=== PATIENT | female | born 1970 | race African-American/Black ===

== ENCOUNTER 2024-07-12 15:51 | Inpatient (IN) | payer OTHER, SELFPAY ==
[2024-07-12 16:00] VITALS: BP 119/74; PULSE 77; RESP 16; TEMP 36.6; O2SAT 99
--- OUTSIDE RECORDS SUMMARY | 2024-07-12 16:12 | XMS_ITS | Encounter Summary ---
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 of care for safety, stabilization and medication evaluation. She is on a section 12 involuntary. Recommendations were discussed with requesting provider. It was a pleasure to assist Dipika Ahumada here at [facility]. This report is written and finalized by: Sue Byrd, Behavioral Health Specialist [facility] (Tel): [phone] / : [phone] * Gray Clarke - 07/11/2024 6:41 PM EDT The patient is assessed in the community by [facility] and found to be appropriate for inpatient, Bed-Search. Assessment will follow upon completion. The patient was described giving up on life and want to ; she does not car for herself. Experiencing auditory and visual hallucination, sometimes telling her to kill herself. She has a history of self-harm by cutting and burning and was previously diagnosed with schizoaffective disorder depressive type. She has been using crack/cocaine for couple of times a week and not med compliant, in factsshe through away all her medication. documented in this encounter Plan of Treatment Pending Results Name Type Priority Associated Diagnoses Date /Time ECG 12 lead ECG STAT 07/11/2024 7: 10 PM EDT Urinalysis with reflex microscopic and culture Lab STAT 07/12/19 6:54 PM EDT [facility] urine culture tube Lab STAT 0 07/11/2024 6:54 PM EDT Scheduled Orders Name Type Priority Associated Diagnoses Orde r Schedule Urinalysis with reflex microscopic and culture Lab STAT Once for 1 Occurrences starting 07/11/2024 until 07/11/2024 [facility] urine culture tube Lab Routine O nce for 1 Occurrences starting 07/11/2024 until 07/11/2024, 1 completed documented as of this encounter Procedures Procedure Name Priority Date/Time Associated Diagnosis Comments CBC WITH AUTO DIFFERENTIAL STAT 07/11/2024 8:26 PM EDT CBC AND DIFFERENTIAL STAT 07/11/2024 8:26 PM EDT ETHANOL STAT 07/11/2024 8:26 PM EDT ACETAMINOPHEN LEVEL STAT 07/11/2024 8 :26 PM EDT SALICYLATE LEVEL STAT 07/11/2024 8:26 PM EDT COMPREHENSIVE METABOLIC PANEL STAT 07/11/2024 8:26 PM EDT ECG 12-LEAD STAT 07/11/2024 7:10 PM EDT URINALYSIS WITH REFLEX MICROSCOPIC AND CULTURE STAT 07/11/2024 6:54 PM EDT DRUG ABUSE SCREEN 8A PANEL, URINE STAT 07/11/2024 6:54 PM EDT BUPRENORPHINE SCREEN, URINE STAT 07/11/2024 6:54 PM EDT METHADONE SCREEN, URINE STAT 07/11/2024 6:54 PM EDT PHENCYCLIDINE, URINE STAT 07/11/2024 6:54 PM EDT documented in this encounter Results * CBC auto differential (07/11/2024 8:26 PM EDT) [facility] Signature WBC 7.9 4.8 - 10.8 K/mcL LAB [facility] RBC 4.40 3.80 - 4.80 M/mcL LAB HEMETOLOGY METHOD 07/11/2024 9:00 PM [facility] Hemoglobin 13.1 11.5 - 16.0 g/dL LAB HEMETOLOGY METHOD 07/11/2024 9:00 PM [facility] Hematocrit 40.8 35.0 - 47.0 % LAB HEMETOLOGY METHOD 07/11/2024 9:00 PM [facility] MCV 93.2 79.0 - 98.0 FL LAB HEMETOLOGY METHOD 07/11/2024 9:00 PM [facility] MCH 29.9 27.0 - 32.0 pcg LAB HEMETOLOGY METHOD 07/11/2024 9:00 PM [facility] MCHC 32.1 32.0 - 37.0 g/dL LAB HEMETOLOGY METHOD 07/11/2024 9:00 PM [facility] RDW 13.9 11.0 - 15.0 % LAB HEMETOLOGY METHOD 07/11/2024 9:00 PM [facility] Platelets 227 130 - 400 K/mcL LAB HEMETOLOGY METHOD 07/11/2024 9:00 PM [facility] MPV 10.6 7.0 - 11.0 FL LAB HEMETOLOGY METHOD 07/11/2024 9:00 PM [facility] NRBC 0.0 <1.0 % LAB HEMETOLOGY METHOD 07/11/2024 9:00 PM [facility] NRBC Absolute 0.00 <0.10 K/mcL LAB HEMETOLOGY METHOD 07/11/2024 9:00 PM [facility] Neutrophils Relative 58.0 % LAB HEMETOLOGY METHOD 07/11/2024 9:00 PM [facility] Lymphocytes Relative 33.9 % LAB HEMETOLOGY METHOD 07/11/2024 9:00 PM [facility] Monocytes Relative 6.3 % LAB HEMETOLOGY METHOD 07/11/2024 9:00 PM [facility] Eosinophils Relative 0.9 % LAB HEMETOLOGY METHOD 07/11/2024 9:00 PM [facility] Basophils Relative 0.5 % LAB HEMETOLOGY METHOD 07/11/2024 9:00 PM [facility] Immature Granulocytes Relative 0.4 % LAB HEMETOLOGY METHOD 07/11/2024 9:00 PM [facility] Neutrophils Absolute 4.59 1.50 - 7.00 K/mcL LAB HEMETOLOGY METHOD 07/11/2024 9:00 PM [facility] Lymphocytes Absolute 2.68 1.00 - 5.00 K/mcL LAB HEMETOLOGY METHOD 07/11/2024 9:00 PM [facility] Monocytes Absolute 0.50 0.20 - 1.00 K/mcL LAB HEMETOLOGY METHOD 07/11/2024 9:00 PM [facility] Eosinophils Absolute 0.07 0.00 - 0.50 K/mcL LAB HEMETOLOGY METHOD 07/11/2024 9:00 PM [facility] Basophils Absolute 0.04 0.00 - 0.20 K/mcL LAB HEMETOLOGY METHOD 07/11/2024 9:00 PM EDT [facility] Immature Granulocytes Absolute 0.03 0.00 - 0.03 K/mcL LAB HEMETOLOGY METHOD 07/11/2024 9:00 PM EDT [facility] Blood Venous blood specimen / Unknown Venipuncture / Unknown 07/11/2024 8:26 PM EDT 07/11/2024 8:49 PM EDT us Jarvis Gambino MD LAB BLOOD ORDERABLES Final Res ult Performing Organization Address [facility] Co de Phone Number [facility] [address] [place] [address], [place] [phone] * (ABNORMAL) Salicylate level (07/11/2024 8:26 PM EDT) Salicylate Level <1.7(L) 2.0 - 29.0 mg/dL LAB CHEMISTRY METHOD 07/11/2024 9:18 PM EDT [facility] Blood Venous blood specimen / Unknown Venipuncture / Unknown 07/11/2024 8:26 PM EDT 07/11/2024 8:49 PM EDT us Jarvis Gambino MD LAB BLOOD ORDERABLES Final Res ult Performing Organization Address [facility]/ZIP Co de Phone Number [facility] [address] [place] [address], [place] [phone] * (ABNORMAL) Acetaminophen level (07/11/2024 8:26 PM EDT) Acetaminophen Level <2.0(L) 10.0 - 30.0 mcg/mL LAB CHEMISTRY METHOD 07/11/2024 9:18 PM EDT [facility] Blood Venous blood specimen / Unknown Venipuncture / Unknown 07/11/2024 8:26 PM EDT 07/11/2024 8:49 PM EDT us Jarvis Gambino MD LAB BLOOD ORDERABLES Final Res ult Performing Organization Address City/[facility]/ZIP Co de Phone Number [facility] [address] [place] [address], [place] [phone] * Ethanol (07/11/2024 8:26 PM EDT) Ethanol Level 9 0 - 10 mg/dL LAB CHEMISTRY METHOD 07/11/2024 9:18 PM EDT [facility] Blood Venous blood specimen / Unknown Venipuncture / Unknown 07/11/2024 8:26 PM EDT 07/11/2024 8:49 PM EDT us Jarvis Gambino MD LAB BLOOD ORDERABLES Final Res ult Performing Organization Address [facility]/ZIP Co de Phone Number [facility] [address] [place] [address], [place] [phone] * (ABNORMAL) Comprehensive metabolic panel (07/11/2024 8:26 PM EDT) Sodium 143 133 - 145 mmol/L LAB CHEMISTRY METHOD 07/11/2024 9:18 PM [facility] Potassium 4.2 3.5 - 5.5 mmol/L LAB CHEMISTRY METHOD 07/11/2024 9:18 PM [facility] Chloride 112(H) 96 - 110 mmol/L LAB CHEMISTRY METHOD 07/11/2024 9:18 PM EDT [facility] CO2 26 21 - 32 mmol/L LAB CHEMISTRY METHOD 07/11/2024 9:18 PM EDT [facility] Anion Gap 5 3 - 11 LAB CHEMISTRY METHOD 07/11/2024 9:18 PM EDT [facility] Glucose 76 70 - 100 mg/dL LAB CHEMISTRY METHOD 07/11[facility]2024 [facility] BUN 14 5 - 25 mg/dL LAB CHEMISTRY METHOD 07/11/2024 9:18 PM [facility] Creatinine 1.09 0.50 - 1.10 mg/dL LAB CHEMISTRY METHOD 07/11/2024 9:18 PM [facility] eGFR 60 >=60 mL/min/1. 73m2 LAB CHEMISTRY METHOD 07/11/2024 9:18 PM [facility] Comment:Calculation based on the Chronic Kidney Disease Epidemiology Collaboration (CKD-EPI) equation refit without adjustment for race. BUN/Creatinine Ratio 12.8 LAB CHEMISTRY METHOD 07/11/2024 9:18 PM [facility] Calcium 8.6 8.5 - 10.5 mg/dL LAB CHEMISTRY METHOD 07/11/2024 9:18 PM [facility] AST (SGOT) 24 10 - 42 unit/L LAB CHEMISTRY METHOD 07/11/2024 9:18 PM [facility] ALT (SGPT) 22 10 - 60 unit/L LAB CHEMISTRY METHOD 07/11/2024 9:18 PM [facility] Alkaline Phosphatase 100 42 - 121 unit/L LAB CHEMISTRY METHOD 07/11/2024 9:18 PM [facility] Total Protein 6.6 6.0 - 8.0 g/dL LAB CHEMISTRY METHOD 07/11/2024 9:18 PM [facility] Albumin 3.3 3.2 - 5.0 g/dL LAB CHEMISTRY METHOD 07/11/2024 9:18 PM [facility] Total Bilirubin 0.2 0.0 - 1.4 mg/dL LAB CHEMISTRY METHOD 07/11/2024 9:18 PM [facility] Blood Venous blood specimen / Unknown Venipuncture / Unknown 07/11/2024 8:26 PM EDT 07/11/2024 8:49 PM EDT Jarvis Gambino MD LAB BLOOD ORDERABLES Final Res ult [facility] [address] [place] [address], [place] [phone] * (ABNORMAL) Urinalysis with reflex microscopic and culture (07/11/2024 6:54 PM EDT) Specific [place] Urine 1.027 1.003 - 1.030 LAB URINALYSIS - AUTOMATED METHOD [facility]/11/2024 7:[facility] pH, Urine 5.5 5.0 - 8.0 pH LAB URINALYSIS - AUTOMATED METHOD 07/11/2024 7:12 PM [facility] Leukocytes, Urine Negative Negative LAB URINALYSIS - AUTOMATED METHOD 07/11/2024 7:12 PM [facility] Nitrite, Urine Negative Negative LAB URINALYSIS - AUTOMATED METHOD 07/11/2024 7:12 PM [facility] Protein, Urine Trace <=Trace mg/dL LAB URINALYSIS - AUTOMATED METHOD 07/11/2024 7:12 PM [facility] Glucose, Urine Negative Negative mg/dL LAB URINALYSIS - AUTOMATED METHOD 07/11/2024 7:12 PM [facility] Ketones, Urine Trace(A) Negative mg/dL LAB URINALYSIS - AUTOMATED METHOD 07/11/2024 7:12 PM [facility] Urobilinogen, Urine 1.0 0.2 - 1.0 mg/dL LAB URINALYSIS - AUTOMATED METHOD 07/11/2024 7:12 PM [facility] Bilirubin, Urine Negative Negative LAB URINALYSIS - AUTOMATED METHOD 07/11/2024 7:12 PM [facility] Blood, Urine Negative Negative LAB URINALYSIS - AUTOMATED METHOD 07/11/2024 7:12 PM [facility] Urine Urine specimen obtained by clean catch procedure / Unknown Non-blood Collection / Unknown 07/11/2024 6:54 PM EDT 07/11/2024 7:06 PM EDT us Jarvis Gambino MD LAB URINE ORDERABLES Final Res ult Performing Organization Address [facility] Co de Phone Number [facility] [address] [place] [address], [place] [phone] * Methadone, urine (07/11/2024 6:54 PM EDT) Methadone Screen, Urine Negative Negative LAB CHEMISTRY METHOD 07/11/2024 7:41 PM EDT [facility] Comment: Assay cutoff 300 ng/mL Semi-quantitative assay for screening purposes only. Unconfirmed screening result should not be used for non-medical purposes. *ALTERNATE METHOD CONFIRMATION DONE UPON REQUEST ONLY* Urine Urine specimen obtained by clean catch procedure / Unknown Non-blood Collection / Unknown 07/11/2024 6:54 PM EDT 07/11/2024 7:05 PM EDT us Jarvis Gambino MD LAB URINE ORDERABLES Final Res ult Performing Organization Address [facility]/ZIP Co de Phone Number [facility] [address] [place] [address], [place] [phone] * Phencyclidine, urine (07/11/2024 6:54 PM EDT) PCP Scrn, Ur Negative Negative LAB CHEMISTRY METHOD 07/11/2024 7:44 PM EDT [facility] Comment: Assay cutoff 25 ng/mL Semi-quantitative assay for screening purposes only. Unconfirmed screening result should not be used for non-medical purposes. *ALTERNATE METHOD CONFIRMATION DONE UPON REQUEST ONLY* Urine Urine specimen obtained by clean catch procedure / Unknown Non-blood Collection / Unknown 07/11/2024 6:54 PM EDT 07/11/2024 7:05 PM EDT us Jarvis Gambino MD LAB URINE ORDERABLES Final Res ult Performing Organization Address [facility]/ZIP Co de Phone Number [facility] [address] [place] [address], [place] [phone] * Buprenorphine screen, urine (07/11/2024 6:54 PM EDT) Buprenorphine Screen Urine Negative Negative LAB CHEMISTRY METHOD 07/11/2024 7:41 PM EDT [facility] Urine Urine specimen obtained by clean catch procedure / Unknown Non-blood Collection / Unknown 07/11/2024 6:54 PM EDT 07/11/2024 7:05 PM EDT Narrative [facility] - 07/11/2024 7:41 PM EDT Assay cutoff 5 ng/mL Semi-quantitative assay for screening purposes only. Unconfirmed screening result should not be used for non-medical purposes. *ALTERNATE METHOD CONFIRMATION DONE UPON REQUEST ONLY* Jarvis Gambino MD LAB URINE ORDERABLES Final Res ult Performing Organization Address [facility] Co de Phone Number [facility] [address] [place] [address], [place] [phone] * (ABNORMAL) Drug abuse screen 8a panel, urine (07/11/2024 6:54 PM EDT) [facility] Amphetamine Screen, Ur Negative Negative LAB CHEMISTRY METHOD 5 7:41 PM EDT [facility] Comment:Certain OTC medicati ons containing ephedrine, phenylephrine, pseudoephedrine and phenylpropanolamine can cause false positive results. Barbiturate Screen, Ur Negative Negative LAB CHEMISTRY METHOD 5 7:41 PM EDT [facility] Benzodiazepine Screen, Ur Negative Negative LAB CHEMISTRY METHOD 5 7:41 PM EDT [facility] Cocaine Screen, Ur Positive(A ) Negative LAB CHEMISTRY METHOD 5 7:41 PM EDT [facility] Opiate Screen, Ur Negative Negative LAB CHEMISTRY METHOD 5 7:41 PM EDT [facility] Cannabinoid (THC) Screen, Ur Negative Negative LAB CHEMISTRY METHOD 5 7:41 PM EDT [facility] Comment:Specimens from patie nts taking pantoprazole sodium (Protonix) have been shown to produce false positive results. Oxycodone Screen, Ur Negative Negative LAB CHEMISTRY METHOD 5 7:41 PM EDT [facility] Fentanyl, Ur Negative Negative LAB CHEMISTRY METHOD 5 7:41 PM EDT [facility] Urine Urine specimen obtained by clean catch procedure / Unknown Non-blood Collection / Unknown 07/11/2024 6:54 PM EDT 07/11/2024 7:05 PM EDT Narrative [facility] - 07/11/2024 7:41 PM EDT Assay cutoffs: Amphetamines ? 1000 ng/mL Barbiturates ?200 ng/mL Benzodiazepines ?? 200 ng/mL Cocaine ? 300 ng/mL Fentanyl ?1 ng/mL Opiates ? 300 ng/mL Oxycodone ? 100 ng/mL THC ?50 ng/mL Semi-quantitative assay for screening purposes only. Unconfirmed screening result should not be used for non-medical purposes. *ALTERNATE METHOD CONFIRMATION DONE UPON REQUEST ONLY* us Jarvis Gambino MD LAB URINE ORDERABLES Final Res ult [facility] [address] [place] [address], documented in this encounter Visit Diagnoses Diagnosis Suicidal ideation- Primary documented in this encounter Administered Medications Active Administered Medications - up to 3 most recent administrations Medication Order MAR Action Action Date Dose Rate Site ARIPiprazole (ABILIFY) tablet 10 mg 10 mg, oral, Daily, First dose on Wed07/12/24 at 0900 Given 07/12/2024 8:50 AM EDT 10 mg bisacodyL (DULCOLAX) EC tablet 10 mg 10 mg, oral, Nightly, First dose on Wed07/11/24 at 2300, Do not give within 1 hour of antacids, milk, or dairy products. Do not crush, chew, or split. Given 07/11/2024 11:32 PM EDT 10 mg cloNIDine (CATAPRES) tablet 0.1 mg 0.1 mg, oral, 2 times daily, First dose on Wed07/11/24 at 2216 Given 07/12/2024 8:51 AM EDT 0.1 mg Given 07/11/2024 11:29 PM EDT 0.1 mg divalproex (DEPAKOTE) DR tablet 250 mg 250 mg, oral, Nightly, First dose on Wed07/11/24 at 2216, HAZARDOUS Drug Precautions - Low Risk (Category A/NIOSH Group 3) Reproductive Risk Only: - Do NOT split, crush, or open dosage units - Single pair of ASTM standard [id number] certified chemotherapy gloves - Eye protection (goggles or face shield) required only with a potential for facial contact (i.e. concern for spitting or vomiting of the dose during or after administration) Given 07/11/2024 11:30 PM EDT 250 mg folic acid (FOLVITE) tablet 1 mg 1 mg, oral, Daily, First dose (after last reorder) on Wed07/12/24 at 0900 Given 07/12/2024 8:51 AM EDT 1 mg hydroCHLOROthiazide (HYDRODIURIL) tablet 12.5 mg 12.5 mg, oral, Daily, First dose on Wed07/12/24 at 0900 Given 07/12/2024 8:52 AM EDT 12.5 mg hydrOXYzine HCL (ATARAX) tablet 10 mg 10 mg, oral, 3 times daily, First dose on Wed07/11/24 at 2216 Given 07/12/2024 8:53 AM EDT 10 mg Given 07/11/2024 11:30 PM EDT 10 mg losartan (COZAAR) tablet 25 mg 25 mg, oral, Daily, First dose on Wed07/12/24 at 0900 Given 07/12/2024 8:53 AM EDT 25 mg pantoprazole (PROTONIX) EC tablet 40 mg 40 mg, oral, Every morning before breakfast, First dose on Wed07/12/24 at 0700, Do not crush, chew, or split. Given 07/12/2024 6:13 AM EDT 40 mg venlafaxine XR (EFFEXOR-XR) 24 hr capsule 37.5 mg 37.5 mg, oral, Daily, First dose on Wed07/12/24 at 0900, Capsule may be swallowed whole, or may be opened and its contents sprinkled on applesauce if consumed immediately without chewing. Do not crush or chew. Given 07/12/2024 9:14 AM EDT 37.5 mg documented in this encounter Discontinued Medications Medication Sig Discontinue Reason Start Date End Da te hydrOXYzine HCL (ATARAX) 50 mg tablet Take 1 Tablet by mouth 3 times daily as needed. Discontinued by another clinician 07/11/2024 hydrOXYzine pamoate (VISTARIL) 50 mg capsule TAKE 1 CAPSULE BY MOUTH 3 (THREE) TIMES DAILY NEEDED FOR ANXIETY FOR UP TO 90 DAYS Discontinued by another clinician 03/01/2024 07/11/2024 documented as of this encounter Historical Medications * This list may reflect changes made after this encounter. hydrOXYzine HCL (ATARAX) 10 mg tablet Take 1 tablet (10 mg total) by mouth 3 times daily as needed. 06/30/2024 venlafaxine XR (EFFEXOR-XR) 37.5 mg 24 hr capsule Take 1 capsule (37.5 mg total) by mouth 1 (one) time each day. 06/26/2024 pyrithione zinc (HEAD AND SHOULDERS) 1 % shampoo Apply 1 Application topically once daily as needed for dandruff or itching. 06/27/2024 olmesartan (BENICAR) 5 mg tablet Take 1 tablet (5 mg total) by mouth daily. 06/27/2024 nystatin-triamci nolone (MYCOLOG II) ointment Apply 1 Application topically 2 (two) times a day. ibuprofen (ADVIL,MOTRIN) 800 mg tablet Take 1 tablet (800 mg total) by mouth 3 times daily as needed. 09/08/2023 divalproex (DEPAKOTE) [address] tablet Take 1 tablet (250 mg total) by mouth at bedtime. 06/26/2024 added in this encounter Active and Recently Administered Medications Times are shown in EDT. Scheduled Medication Order 07/10/2024 07/11/2024 07/12/2024 ARIPiprazole (ABILIFY) tablet 10 mg 10 mg, oral, Daily, First dose on Wed07/12/24 at 0900 0850 (Given - Provid er: Emerita Leone RN) bisacodyL (DULCOLAX) EC tablet 10 mg 10 mg, oral, Nightly, First dose on Wed07/11/24 at 2300, Do not give within 1 hour of antacids, milk, or dairy products. Do not crush, chew, or split. 2332 (Given - Provider: Christian De La Paz RN) 2100 (Due) cloNIDine (CATAPRES) tablet 0.1 mg 0.1 mg, oral, 2 times daily, First dose on Wed07/11/24 at 2216 2329 (Given - Provider: Christian De La Paz RN) 0851 (Given - Provider: Emerita Leone RN)2100 (Due) divalproex (DEPAKOTE) DR tablet 250 mg 250 mg, oral, Nightly, First dose on Wed07/11/24 at 2216, HAZARDOUS Drug Precautions - Low Risk (Category A/NIOSH Group 3) Reproductive Risk Only: - Do NOT split, crush, or open dosage units - Single pair of ASTM standard [id number] certified chemotherapy gloves - Eye protection (goggles or face shield) required only with a potential for facial contact (i.e. concern for spitting or vomiting of the dose during or after administration) 2330 (Given - Provider: Christian De La Paz RN) 2100 (Due) folic acid (FOLVITE) tablet 1 mg 1 mg, oral, Daily, First dose (after last reorder) on Wed07/12/24 at 0900 0851 (Given - Provid er: Emerita Leone RN) hydroCHLOROthiazide (HYDRODIURIL) tablet 12.5 mg 12.5 mg, oral, Daily, First dose on Wed07/12/24 at 0900 0852 (Given - Provid er: Emerita Leone RN) hydrOXYzine HCL (ATARAX) tablet 10 mg 10 mg, oral, 3 times daily, First dose on Wed07/11/24 at 2216 2330 (Given - Provider: Christian De La Paz RN) 0853 (Given - Provider: Emerita Leone RN)1451 (Not Given - Provider: Emerita Leone RN - Reason: Patient/Resident/Agent refused - education provided - Comment: pt refused, stated she will take tonight)2100 (Due) losartan (COZAAR) tablet 25 mg 25 mg, oral, Daily, First dose on Wed07/12/24 at 0900 0853 (Given - Provid er: Emerita Leone RN) pantoprazole (PROTONIX) EC tablet 40 mg 40 mg, oral, Every morning before breakfast, First dose on Wed07/12/24 at 0700, Do not crush, chew, or split. 0613 (Given - Provid er: Christian De La Paz RN) venlafaxine XR (EFFEXOR-XR) 24 hr capsule 37.5 mg 37.5 mg, oral, Daily, First dose on Wed07/12/24 at 0900, Capsule may be swallowed whole, or may be opened and its contents sprinkled on applesauce if consumed immediately without chewing. Do not crush or chew. 0914 (Given - Provid er: Emerita Leone RN) documented in this encounter Orders Medications Ordered That Ed ht Not Have Been Administered Count Last Ordered Date First Ordered Date folic acid (FOLVITE) tablet 0.4 mg 1 2024 Diet Count Last Ordered Date First Orde red Date ADULT DIET 1 07/11/2024 Nursing Count Last Ordered Date First Orde red Date VITAL SIGNS 1 07/11/2024 Precaution Count Last Ordered Date First Orde red Date SUICIDE PRECAUTIONS 1 07/11/2024 Privilege Level Count Last Ordered Date First O rdered Date PATIENT [employer] 1 07/11/2024 documented in this encounter Care Teams Urinalysis Technician Relationship Specialty Start Date End Date Physician, Pcp Unknown PCP - General 07/11/24 documented as of this encounter
--- NOTE | 2024-07-12 18:42 | PC.ADMIT ---
Dipika is a 54 y/o female that was admitted to at 1600 from [facility] on a CV for treatment of schizoaffective d/o.? Precipitant of admission include increasing thoughts of SI/HI, but did not disclose plans. Pt recently threw out medications and has been noncompliant for weeks.? Pt has a hx of self harm by cutting or burning self. Pt currently denied SI or HI at this time, reported that she would be able to come to staff if those thoughts arise.? Pt lives in an apartment, but feels unsafe r/t the condition of it. She reports there is fungus growing. Per crisis evaluation wrote that there were reports of bed bugs but no evidence of bites on pt. Pt reported a recent stressor but did not want to discuss further.? Level of consciousness alert and oriented. Pt was cooperative with admission process.? Mood is depressed, affect is congruent with mood.? Pt endorsed AVH at [facility] but denies currently.? Thought Process linear and organized.? Pt reported a decrease in appetite and a 3lb weight loss in the past week.? Pt reported poor sleep and frequent awakens.? Pt reported poor focus and concentration.? Pt denied etoh and tobacco use.? Tox Screen was positive for cocaine. Pt reported using it a few times a week and reported that she smokes it.? 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 Pt did not offer any physical complaints.? Hx of IPLOC over a year ago.? Pt was placed on 15 minutes checks for safety.? Allergies - fluphenazine, paliperidone, penicillin, haldol, lithium, lithium citrate.? Skin checked performed, superficial cuts on L wrist from self harming this past week. Old scarring throughout the body from self harm in the past.? Per Dr De León, pt allowed to wear hair bonnet.
[2024-07-12 18:59] VITALS: BMI 32.6
[2024-07-12 19:40] VITALS: BP 122/66; PULSE 83; RESP 16; TEMP 36.9; O2SAT 100
[2024-07-13 07:00] VITALS: BMI 32.5
[2024-07-13 08:00] VITALS: BP 127/80; PULSE 68; RESP 16; TEMP 36.4; O2SAT 100
[2024-07-13 08:09] VITALS: BP 127/80
[2024-07-13] MEDS: hydroCHLOROthiazide 12.5 MG TABLET PO (08:09)
[2024-07-13] MEDS: Venlafaxine HCl ER 37.5 MG CAP.ER.24H PO (08:10)
[2024-07-13 08:12] VITALS: BP 127/80
[2024-07-13] MEDS: cloNIDine HCL 0.1 MG TABLET PO ×2 (08:12→20:18)
[2024-07-13 09:20] LABS: Estimated Average Glucose 111 mg/dL; Hemoglobin A1C 129.7668 umol/L; Hemoglobin A1c % 5.5 % (<6.0); Total Hemoglobin (HGBA1C) 3586.5652 umol/L
[2024-07-13 09:22] LABS: Cholesterol 192 mg/dL (<200); HDL Cholesterol 50 mg/dL (>40); LDL Cholesterol Calculated 108 mg/dL (<100); Triglycerides 171 mg/dL (<150)
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
[2024-07-13 09:40] LABS: Free T4 (Free Thyroxine) 0.96 ng/dL (0.71-1.85); Thyroid Stimulating Hormone 0.61 uIU/mL (0.32-4.0)
[2024-07-13 09:52] LABS: Folate 10.4 ng/mL (> or = 4.0); Vitamin B12 438 pg/mL (200-900)
--- NOTE | 2024-07-13 11:26 | HO.PM.IMCN ---
History of Present Illness Data of Consult Service Date: 07/13/24 Primary Care Provider: [facility] HPI Reason for consult: Medical history and physical 54-year-old female with past medical history of schizoaffective disorder, hypertension presented to [facility] with SI/HI with plans to cut or burn herself. She had not been taking medications for weeks per her report. She has a history of pituitary tumor removal in 2003, she periodic refills with Dr. Simons. In the ED her BMP, CBC and UA were all negative. She was found to have positive cocaine on her tox screen. She denies any medical concerns other than acid reflux. She reports that she has not taken any medications in several weeks. Her blood pressure is within normal limits on exam. She denies any other medical history or concerns. Review of Systems Review of Systems: Denies any shortness of breath, chest pain, dizziness, lightheadedness, abdominal pain or discomfort, nausea vomiting or diarrhea PMFSH Social History Household Members: None Housing: Apartment Do you presently have visiting nurse or other home services: No Patient Tobacco Use Status: Never used Tobacco Second Hand Smoke Exposure: No Currently Displaying Signs/Symptoms of Drug Intoxication Withdrawal: No Have you been hit, kicked, punched, or otherwise hurt by someone within the past year? If so, by whom?: No Do you feel safe in your current relationship?: No Current Relationship Is there a partner from a previous relationship who is making you feel unsafe now?: No Advance Directives: No Advance Directives Information Provided: Yes Do you have thoughts of harming others: None Do you have a plan to hurt others: No Plan Recently lost weight without trying: Yes How much weight loss: 2-13 pounds Eating poorly because of decreased appetite: Yes Nutrition screen score: 4 Nutrition Risks: No Nutritional Risk Patient : No : No Poor oral hygiene: No Meds Allergies Allergy/AdvReac Type Severity Reaction Status Date / Time Penicillins Allergy Intermediate RASH Unverified 11/02/19 16:31 fluphenazine Allergy Unknown Verified 07/12/24 16:28 haloperidol [From Haldol] Allergy Unknown Verified 07/12/24 16:31 lithium Allergy Unknown Verified 07/12/24 16:31 paliperidone Allergy Unknown Verified 07/12/24 16:31 lithium citrate Allergy Unknown Uncoded 07/12/24 16:31 Active Medications: Current Medications Acetaminophen (Acetaminophen 325 Mg Tablet) 650 mg PO Q6H PRN PRN Reason: Headache/Pain, Scale 1-10 Al Hydroxide/Mg Hydroxide (Magnesium Hydrox/Alum Hydrox 30 Ml Oral.Susp) 30 ml PO Q6H PRN PRN Reason: Heartburn/Nausea Clonidine HCl (Clonidine Hcl 0.1 Mg Tablet) 0.1 mg PO BID [facility]; Protocol Last Admin: 07/13/24 08:12 Dose: 0.1 mg Divalproex Sodium (Divalproex Sodium 250 Mg Tablet.) 250 mg PO BEDTIME [facility] Last Admin: 07/12/24 22:20 Dose: Not Given Folic Acid (Folic Acid 1 Mg Tablet) 1 mg PO DAILY [facility] Last Admin: 07/13/24 08:29 Dose: Not Given Hydrochlorothiazide (Hydrochlorothiazide 12.5 Mg Tablet) 12.5 mg PO DAILY [facility]; Protocol Last Admin: 07/13/24 08:09 Dose: 12.5 mg Hydroxyzine HCl (Hydroxyzine Hcl 25 Mg Tablet) 25 mg PO Q6H PRN PRN Reason: mild anxiety Magnesium Hydroxide (Milk Of Magnesia 30 Ml Oral.Susp) 30 ml PO DAILY PRN PRN Reason: Constipation Nicotine Polacrilex (Nicotine Polacrilex 2 Mg Gum) 4 mg BUCCAL Q2H PRN PRN Reason: Nicotine Cravings Non-Formulary Medication (Olmesartan) 5 mg PO DAILY [facility] Omeprazole (Omeprazole 20 Mg Capsule.) 20 mg PO DAILY PRN PRN Reason: GERD Sx Trazodone HCl (Trazodone Hcl 50 Mg Tablet) 50 mg PO BEDTIME MRX1 PRN PRN Reason: Insomnia Venlafaxine HCl (Venlafaxine Hcl Er 37.5 Mg Cap.Er.24h) 37.5 mg PO DAILY [facility] Last Admin: 07/13/24 08:10 Dose: 37.5 mg Home Medications ?Medication ?Instructions ?Recorded ?Confirmed ?Last Taken ?Type clonidine HCl 0.1 mg tablet 0.1 mg PO BID 07/12/24 07/12/24 07/12/24 History divalproex 250 mg tablet,delayed 250 mg PO BEDTIME 07/12/24 07/12/24 Unknown History release folic acid 400 mcg tablet 0.4 mg PO DAILY 07/12/24 07/12/24 07/12/24 History hydrochlorothiazide 12.5 mg capsule 12.5 mg PO DAILY 07/12/24 07/12/24 07/12/24 History hydroxyzine HCl 10 mg tablet 10 mg PO TID PRN itch 07/12/24 07/12/24 07/12/24 History olmesartan 5 mg tablet 5 mg PO DAILY 07/12/24 07/12/24 Unknown History omeprazole 20 mg capsule,delayed 20 mg PO QAM 07/12/24 07/12/24 Unknown History release venlafaxine 37.5 mg 37.5 mg PO QAM 07/12/24 07/12/24 07/12/24 History capsule,extended release 24 hr Physical Exam Vital Signs and Narrative: Vital Signs: Last Vital Signs Temp 97.5 F 07/13/24 08:00 Pulse 68 07/13/24 08:00 Resp 16 07/13/24 08:00 BP 127/80 07/13/24 08:12 Pulse Ox 100 07/13/24 08:00 O2 Del Method Room Air 07/13/24 08:00 BMI result Body Mass Index 32.6 Alert and oriented X3, able to give good history. Neuro: CN II-X11 intact, no deficits, visual acuity intact EYES: PERRLA, EOM intact ENT: hearing intact, uvula midline, lips moist, nares patent no epistaxis Cardiac: S1 S2 RRR, no edema in Lower ext Pulmonary: lungs clear to auscultation, No increased WOB. Abdominal: BS active in all 4 quadrants, no guarding or tenderness MSK: Strength 5/5 upper and lower extremities : Deferred Extremities: no edema in lower extremities, Psych: Calm and cooperative Skin: Warm and dry, Intact Results Labs Labs: Laboratory Results - last 24 hr 07/13/24 08:21 Estimat Average Glucose 111 Hemoglobin A1c % 5.5 Triglycerides 171 H Cholesterol 192 LDL Cholesterol, Calc 108 H HDL Cholesterol 50 Vitamin B12 438 Folate 10.4 TSH 0.61 Free T4 0.96 Assessment and Plan (1) HTN (hypertension): Status: Acute Plan Schizoaffective disorder with SI/HI Treatment per Psychiatry team Hypertension Her blood pressure has been stable since she has been here. Continue hydrochlorothiazide 12.5 mg Continue clonidine 0.1 mg b.i.d.Thank you for allowing me to participate in the care of this patient. Signing off at this time. Please reconsult of any acute complaints or issues arise
[2024-07-13] MEDS: Cholecalciferol (Vitamin D3) 25 MCG TABLET PO (12:17)
[2024-07-13 20:00] VITALS: BP 118/77; PULSE 73; RESP 14; TEMP 36.9; O2SAT 96
[2024-07-13 20:18] VITALS: BP 159/93
[2024-07-13] MEDS: Divalproex Sodium 250 MG TABLET.DR PO (20:18)
[2024-07-14 07:54] VITALS: BP 135/90; PULSE 83; TEMP 36.4; O2SAT 97
[2024-07-14] MEDS: Cholecalciferol (Vitamin D3) 25 MCG TABLET PO (08:07)
[2024-07-14] MEDS: hydroCHLOROthiazide 12.5 MG TABLET PO (08:07)
[2024-07-14] MEDS: cloNIDine HCL 0.1 MG TABLET PO (08:08)
[2024-07-14] MEDS: Venlafaxine HCl ER 37.5 MG CAP.ER.24H PO (08:09)
[2024-07-14 10:38] VITALS: BP 113/71; PULSE 72
--- NOTE | 2024-07-14 12:22 | P.PNPSI_ITS ---
Subjective Subjective Date of Service: 07/14/24 Reason For Visit: Schizoaffective disorder depressive type Interim History: calm, cooperative. poor sleep, lots of tossing and turning. no nightmares. elevated BP reviewed, use of HCTZ and clonidine discussed. pt agreeable to trial of increased clonidine dosing for dual use HTN and anxiety Tx. otherwise feels things are going well, she is relaxing here and enjoying her break from the stresses of her home. per staff, no issues. +anx/dep. slept 8 hours. Mental Status Exam Mental Status Exam Narrative: adequately dressed and groomed. cooperative, no PMA/PMR. speech soft, otherwise normal rate, amount, tone, latency. thoughts linear and logical. affect flexible, normo-intense, non-labile. mood OK. not stressed. no SI/S IBI/HI/AVH expressed. Diagnostics Vital Signs (24Hr): Vital Signs - 24 hr 07/13/24 20:00 07/13/24 20:18 07/14/24 07:54 Temperature 98.5 F 97.5 F Pulse Rate 73 83 Respiratory Rate 14 Blood Pressure 118/77 159/93 H 135/90 H Pulse Oximetry 96 97 Oxygen Delivery Method Room Air Room Air 07/14/24 10:38 Temperature Pulse Rate 72 Respiratory Rate Blood Pressure 113/71 Pulse Oximetry Oxygen Delivery Method BMI result Body Mass Index 32.5 Labs Labs: Laboratory Results - last 48 hr 07/13/24 08:21 Estimat Average Glucose 111 Hemoglobin A1c % 5.5 Triglycerides 171 H Cholesterol 192 LDL Cholesterol, Calc 108 H HDL Cholesterol 50 Vitamin B12 438 Folate 10.4 TSH 0.61 Free T4 0.96 Medications Medications Current Medications Acetaminophen (Acetaminophen 325 Mg Tablet) 650 mg PO Q6H PRN PRN Reason: Headache/Pain, Scale 1-10 Al Hydroxide/Mg Hydroxide (Magnesium Hydrox/Alum Hydrox 30 Ml Oral.Susp) 30 ml PO Q6H PRN PRN Reason: Heartburn/Nausea Clonidine HCl (Clonidine Hcl 0.1 Mg Tablet) 0.15 mg PO BID [facility]; Protocol Divalproex Sodium (Divalproex Sodium 250 Mg Tablet.) 250 mg PO BEDTIME [facility] Last Admin: 07/13/24 20:18 Dose: 250 mg Folic Acid (Folic Acid 1 Mg Tablet) 1 mg PO DAILY [facility] Last Admin: 07/14/24 08:10 Dose: Not Given Hydrochlorothiazide (Hydrochlorothiazide 12.5 Mg Tablet) 12.5 mg PO DAILY [facility]; Protocol Hydroxyzine HCl (Hydroxyzine Hcl 25 Mg Tablet) 25 mg PO Q6H PRN PRN Reason: mild anxiety Magnesium Hydroxide (Milk Of Magnesia 30 Ml Oral.Susp) 30 ml PO DAILY PRN PRN Reason: Constipation Nicotine Polacrilex (Nicotine Polacrilex 2 Mg Gum) 4 mg BUCCAL Q2H PRN PRN Reason: Nicotine Cravings Omeprazole (Omeprazole 20 Mg Capsule.Dr) 20 mg PO DAILY PRN PRN Reason: GERD Sx Trazodone HCl (Trazodone Hcl 50 Mg Tablet) 50 mg PO BEDTIME MRX1 PRN PRN Reason: Insomnia Venlafaxine HCl (Venlafaxine Hcl Er 37.5 Mg Cap.Er.24h) 37.5 mg PO DAILY [facility] Last Admin: 07/14/24 08:09 Dose: 37.5 mg Vitamin D (Cholecalciferol (Vitamin D3) 25 Mcg Tablet) 25 mcg PO DAILY [facility] Last Admin: 07/14/24 08:07 Dose: 25 mcg Allergies Allergies Allergy/AdvReac Type Severity Reaction Status Date / Time Penicillins Allergy Intermediate RASH Unverified 11/02/19 16:31 fluphenazine Allergy Unknown Verified 07/12/24 16:28 haloperidol [From Haldol] Allergy Unknown Verified 07/12/24 16:31 lithium Allergy Unknown Verified 07/12/24 16:31 paliperidone Allergy Unknown Verified 07/12/24 16:31 lithium citrate Allergy Unknown Uncoded 07/12/24 16:31 Assessment & Plan Assessment & Plan (1) PTSD (post-traumatic stress disorder): Status: Acute Code(s): F43.10 - Post-traumatic stress disorder, unspecified (2) Cocaine use disorder: Status: Acute Code(s): F14.10 - Cocaine abuse, uncomplicated Plan 07/13: restart outpt meds. abstain from cocaine. stabilize inpatient. referral for rehab. 07/14: increase clonidine to 0.15 BID for BP and anxiety. otherwise continue current mgmt. Reason for continued inpatient stay Substantial Risk for: inability to function Time Spent With Patient Time: Total time managing care of this patient today __25__ minutes.
[2024-07-14 20:00] VITALS: BP 135/90; PULSE 84; RESP 16; TEMP 36.4; O2SAT 100
[2024-07-14] MEDS: cloNIDine HCL 0.1 MG TABLET 0.15 MG PO (20:57)
[2024-07-14] MEDS: Divalproex Sodium 250 MG TABLET.DR PO (21:00)
[2024-07-14] MEDS: hydrOXYzine HCL 25 MG TABLET PO (21:00)
[2024-07-15] VITALS (7 sets, daily range): BP systolic 94–132; BP diastolic 56–81; PULSE 79–87; RESP 16–18; TEMP 36.4–36.6; O2SAT 99–100
[2024-07-15] MEDS: cloNIDine HCL 0.1 MG TABLET 0.15 MG PO ×2 (09:11→21:17)
[2024-07-15] MEDS: Cholecalciferol (Vitamin D3) 25 MCG TABLET PO (09:11)
[2024-07-15] MEDS: Venlafaxine HCl ER 37.5 MG CAP.ER.24H PO (09:17)
[2024-07-15] MEDS: hydroCHLOROthiazide 12.5 MG TABLET PO (09:18)
--- NOTE | 2024-07-15 10:04 | HO.PSYCHPN ---
Subjective Subjective Date of Service: 07/15/24 Reason For Visit: Schizoaffective disorder depressive type Subjective Notes: Conditional Voluntary Interim History: Pt slept through the night. She reports feeling better, plans to go to [place] to help daughter with . She reports family not aware of substance use or that she is here. SHe denies SI/HI. Review of Systems Review of Systems Denies any shortness of breath, chest pain, dizziness, lightheadedness, abdominal pain or discomfort, nausea vomiting or diarrhea Mental Status Exam Mental Status Exam Narrative: adequately dressed and groomed. cooperative, no PMA/PMR. speech soft, otherwise normal rate, amount, tone, latency. thoughts linear and logical. affect flexible, normo-intense, non-labile. mood OK. not stressed. no SI/SIBI/HI/AVH expressed. Diagnostics Vital Signs (24Hr): Vital Signs - 24 hr 07/14/24 10:38 07/14/24 20:00 07/15/24 07:10 Temperature 97.5 F 97.6 F Pulse Rate 72 84 81 Respiratory Rate 16 16 Blood Pressure 113/71 135/90 H 114/74 Pulse Oximetry 100 99 Oxygen Delivery Method Room Air Room Air 07/15/24 09:11 07/15/24 09:18 Temperature Pulse Rate Respiratory Rate Blood Pressure 120/71 120/71 Pulse Oximetry Oxygen Delivery Method BMI result Body Mass Index 32.5 Medications Medications Current Medications Acetaminophen (Acetaminophen 325 Mg Tablet) 650 mg PO Q6H PRN PRN Reason: Headache/Pain, Scale 1-10 Al Hydroxide/Mg Hydroxide (Magnesium Hydrox/Alum Hydrox 30 Ml Oral.Susp) 30 ml PO Q6H PRN PRN Reason: Heartburn/Nausea Clonidine HCl (Clonidine Hcl 0.1 Mg Tablet) 0.15 mg PO BID [facility]; Protocol Last Admin: 07/15/24 09:11 Dose: 0.15 mg Divalproex Sodium (Divalproex Sodium 250 Mg Tablet.) 250 mg PO BEDTIME [facility] Last Admin: 07/14/24 21:00 Dose: 250 mg Folic Acid (Folic Acid 1 Mg Tablet) 1 mg PO DAILY [facility] Last Admin: 07/15/24 09:17 Dose: Not Given Hydrochlorothiazide (Hydrochlorothiazide 12.5 Mg Tablet) 12.5 mg PO DAILY [facility]; Protocol Last Admin: 07/15/24 09:18 Dose: 12.5 mg Hydroxyzine HCl (Hydroxyzine Hcl 25 Mg Tablet) 25 mg PO Q6H PRN PRN Reason: mild anxiety Last Admin: 07/14/24 21:00 Dose: 25 mg Magnesium Hydroxide (Milk Of Magnesia 30 Ml Oral.Susp) 30 ml PO DAILY PRN PRN Reason: Constipation Nicotine Polacrilex (Nicotine Polacrilex 2 Mg Gum) 4 mg BUCCAL Q2H PRN PRN Reason: Nicotine Cravings Omeprazole (Omeprazole 20 Mg Capsule.Dr) 20 mg PO DAILY PRN PRN Reason: GERD Sx Trazodone HCl (Trazodone Hcl 50 Mg Tablet) 50 mg PO BEDTIME MRX1 PRN PRN Reason: Insomnia Venlafaxine HCl (Venlafaxine Hcl Er 37.5 Mg Cap.Er.24h) 37.5 mg PO DAILY [facility] Last Admin: 07/15/24 09:17 Dose: 37.5 mg Vitamin D (Cholecalciferol (Vitamin D3) 25 Mcg Tablet) 25 mcg PO DAILY [facility] Last Admin: 07/15/24 09:11 Dose: 25 mcg Allergies Allergies Allergy/AdvReac Type Severity Reaction Status Date / Time Penicillins Allergy Intermediate RASH Unverified 11/02/19 16:31 fluphenazine Allergy Unknown Verified 07/12/24 16:28 haloperidol [From Haldol] Allergy Unknown Verified 07/12/24 16:31 lithium Allergy Unknown Verified 07/12/24 16:31 paliperidone Allergy Unknown Verified 07/12/24 16:31 lithium citrate Allergy Unknown Uncoded 07/12/24 16:31 Assessment & Plan Assessment & Plan (1) PTSD (post-traumatic stress disorder): Status: Acute Code(s): F43.10 - Post-traumatic stress disorder, unspecified (2) Cocaine use disorder: Status: Acute Code(s): F14.10 - Cocaine abuse, uncomplicated Plan 07/13: restart outpt meds. abstain from cocaine. stabilize inpatient. referral for rehab. 07/14: increase clonidine to 0.15 BID for BP and anxiety. otherwise continue current mgmt. 07/15 continue tx. monitor BP, encourage fluids. no ortho signs Reason for continued inpatient stay Substantial Risk for: inability to function Time Spent With Patient Time: Total time managing care of this patient today ____ minutes.
--- NOTE | 2024-07-15 14:52 | PC.NURSE ---
Patient signed/submitted 3 Day Notice today 07/15/24, will be up 07/19/24.
[2024-07-15] MEDS: Divalproex Sodium 250 MG TABLET.DR PO (21:16)
[2024-07-16 07:20] VITALS: BP 120/59; PULSE 80; TEMP 36.6; O2SAT 99
[2024-07-16 09:02] VITALS: BP 117/73
[2024-07-16] MEDS: hydroCHLOROthiazide 12.5 MG TABLET PO (09:02)
[2024-07-16 09:03] VITALS: BP 117/73
[2024-07-16] MEDS: cloNIDine HCL 0.1 MG TABLET 0.15 MG PO ×2 (09:03→20:48)
[2024-07-16] MEDS: Venlafaxine HCl ER 75 MG CAP.ER.24H PO (09:03)
[2024-07-16] MEDS: Cholecalciferol (Vitamin D3) 25 MCG TABLET PO (09:03)
[2024-07-16 20:24] VITALS: BP 130/78; PULSE 78; RESP 16; TEMP 36.3; O2SAT 99
[2024-07-16] MEDS: Divalproex Sodium 250 MG TABLET.DR PO (20:48)
[2024-07-16] MEDS: Omeprazole 20 MG CAPSULE.DR PO (20:54)
--- NOTE | 2024-07-16 21:46 | HO.PSYCHPN ---
Subjective Subjective Date of Service: 07/16/24 Reason For Visit: Schizoaffective disorder depressive type Subjective Notes: Conditional Voluntary Interim History: Pt slept through the night. She reports feeling better, plans to go to [place] to help daughter with . She reports family not aware of substance use or that she is here. SHe denies SI/HI. Review of Systems Review of Systems Denies any shortness of breath, chest pain, dizziness, lightheadedness, abdominal pain or discomfort, nausea vomiting or diarrhea Mental Status Exam Mental Status Exam Narrative: adequately dressed and groomed. cooperative, no PMA/PMR. speech soft, otherwise normal rate, amount, tone, latency. thoughts linear and logical. affect flexible, normo-intense, non-labile. mood OK. not stressed. no SI/SIBI/HI/AVH expressed. Diagnostics Vital Signs (24Hr): Vital Signs - 24 hr 07/16/24 07:20 07/16/24 09:02 07/16/24 09:03 Temperature 97.9 F Pulse Rate 80 Respiratory Rate Blood Pressure 120/59 L 117/73 117/73 Pulse Oximetry 99 Oxygen Delivery Method Room Air 07/16/24 20:24 Temperature 97.4 F Pulse Rate 78 Respiratory Rate 16 Blood Pressure 130/78 Pulse Oximetry 99 Oxygen Delivery Method Room Air BMI result Body Mass Index 32.5 Medications Medications Current Medications Acetaminophen (Acetaminophen 325 Mg Tablet) 650 mg PO Q6H PRN PRN Reason: Headache/Pain, Scale 1-10 Al Hydroxide/Mg Hydroxide (Magnesium Hydrox/Alum Hydrox 30 Ml Oral.Susp) 30 ml PO Q6H PRN PRN Reason: Heartburn/Nausea Clonidine HCl (Clonidine Hcl 0.1 Mg Tablet) 0.15 mg PO BID [facility]; Protocol Last Admin: 07/16/24 20:48 Dose: 0.15 mg Divalproex Sodium (Divalproex Sodium 250 Mg Tablet.) 250 mg PO BEDTIME ISAIAH Last Admin: 07/16/24 20:48 Dose: 250 mg Folic Acid (Folic Acid 1 Mg Tablet) 1 mg PO DAILY ISAIAH Last Admin: 07/16/24 09:05 Dose: Not Given Hydrochlorothiazide (Hydrochlorothiazide 12.5 Mg Tablet) 12.5 mg PO DAILY [facility]; Protocol Last Admin: 07/16/24 09:02 Dose: 12.5 mg Hydroxyzine HCl (Hydroxyzine Hcl 25 Mg Tablet) 25 mg PO Q6H PRN PRN Reason: mild anxiety Last Admin: 07/14/24 21:00 Dose: 25 mg Magnesium Hydroxide (Milk Of Magnesia 30 Ml Oral.Susp) 30 ml PO DAILY PRN PRN Reason: Constipation Nicotine Polacrilex (Nicotine Polacrilex 2 Mg Gum) 4 mg BUCCAL Q2H PRN PRN Reason: Nicotine Cravings Omeprazole (Omeprazole 20 Mg Capsule.Dr) 20 mg PO DAILY PRN PRN Reason: GERD Sx Last Admin: 07/16/24 20:54 Dose: 20 mg Trazodone HCl (Trazodone Hcl 50 Mg Tablet) 50 mg PO BEDTIME [id number] PRN PRN Reason: Insomnia Venlafaxine HCl (Venlafaxine Hcl Er 75 Mg Cap.Er.24h) 75 mg PO DAILY ISAIAH Last Admin: 07/16/24 09:03 Dose: 75 mg Vitamin D (Cholecalciferol (Vitamin D3) 25 Mcg Tablet) 25 mcg PO DAILY ISAIAH Last Admin: 07/16/24 09:03 Dose: 25 mcg Allergies Allergies Allergy/AdvReac Type Severity Reaction Status Date / Time Penicillins Allergy Severe RASH Verified 07/15/24 14:54 fluphenazine Allergy Unknown Verified 07/12/24 16:28 haloperidol [From Haldol] Allergy Unknown Verified 07/12/24 16:31 lithium Allergy Unknown Verified 07/12/24 16:31 paliperidone Allergy Unknown Verified 07/12/24 16:31 lithium citrate Allergy Intermediate Rash Uncoded 07/15/24 14:55 Assessment & Plan Assessment & Plan (1) PTSD (post-traumatic stress disorder): Status: Acute Code(s): F43.10 - Post-traumatic stress disorder, unspecified (2) Cocaine use disorder: Status: Acute Code(s): F14.10 - Cocaine abuse, uncomplicated Plan 07/13: restart outpt meds. abstain from cocaine. stabilize inpatient. referral for rehab. 07/14: increase clonidine to 0.15 BID for BP and anxiety. otherwise continue current mgmt. 07/15 continue tx. monitor BP. 07/16 continue tx. Reason for continued inpatient stay Substantial Risk for: inability to function Time Spent With Patient Time: Total time managing care of this patient today ____ minutes.
[2024-07-17 08:04] VITALS: BP 131/83; PULSE 78; RESP 16; TEMP 36.4; O2SAT 99
[2024-07-17] MEDS: cloNIDine HCL 0.1 MG TABLET 0.15 MG PO (08:05)
[2024-07-17] MEDS: hydroCHLOROthiazide 12.5 MG TABLET PO (08:06)
[2024-07-17] MEDS: Venlafaxine HCl ER 75 MG CAP.ER.24H PO (08:07)
[2024-07-17] MEDS: Cholecalciferol (Vitamin D3) 25 MCG TABLET PO (08:07)
--- NOTE | 2024-07-17 12:05 | P.PNPSI_ITS ---
Subjective Subjective Date of Service: 07/17/24 Reason For Visit: Schizoaffective disorder depressive type Interim History: calm, cooperative, pleasant. some difficulty sleeping. BPs reviewed, trending up the past 24H. agreeable to increase HS clonidine to 0.2 mg. 3-day up weds, planning to discharge weds and fly to [place] to be with her daughter and grandchild. anxiety reduced. per staff, taking meds, looking forward to [place], slept 6 hours. Mental Status Exam Mental Status Exam Narrative: adequately dressed and groomed. cooperative, no PMA/PMR. speech soft, otherwise normal rate, amount, tone, latency. thoughts linear and logical. affect flexible, normo-intense, non-labile. mood OK. not stressed. no SI/SIBI/HI/AVH expressed. Diagnostics Vital Signs (24Hr): Vital Signs - 24 hr 07/16/24 20:24 07/17/24 08:04 Temperature 97.4 F 97.6 F Pulse Rate 78 78 Respiratory Rate 16 16 Blood Pressure 130/78 131/83 Pulse Oximetry 99 99 Oxygen Delivery Method Room Air Room Air BMI result Body Mass Index 32.5 Medications Medications Current Medications Acetaminophen (Acetaminophen 325 Mg Tablet) 650 mg PO Q6H PRN PRN Reason: Headache/Pain, Scale 1-10 Al Hydroxide/Mg Hydroxide (Magnesium Hydrox/Alum Hydrox 30 Ml Oral.Susp) 30 ml PO Q6H PRN PRN Reason: Heartburn/Nausea Clonidine HCl (Clonidine Hcl 0.1 Mg Tablet) 0.15 mg PO DAILY ISAIAH; Protocol Clonidine HCl (Clonidine Hcl 0.2 Mg Tablet) 0.2 mg PO BEDTIME ISAIAH; Protocol Divalproex Sodium (Divalproex Sodium 250 Mg Tablet.Dr) 250 mg PO BEDTIME ISAIAH Last Admin: 07/16/24 20:48 Dose: 250 mg Folic Acid (Folic Acid 1 Mg Tablet) 1 mg PO DAILY ISAIAH Last Admin: 07/17/24 08:08 Dose: Not Given Hydrochlorothiazide (Hydrochlorothiazide 12.5 Mg Tablet) 12.5 mg PO DAILY ISAIAH; Protocol Last Admin: 07/17/24 08:06 Dose: 12.5 mg Hydroxyzine HCl (Hydroxyzine Hcl 25 Mg Tablet) 25 mg PO Q6H PRN PRN Reason: mild anxiety Last Admin: 07/14/24 21:00 Dose: 25 mg Magnesium Hydroxide (Milk Of Magnesia 30 Ml Oral.Susp) 30 ml PO DAILY PRN PRN Reason: Constipation Nicotine Polacrilex (Nicotine Polacrilex 2 Mg Gum) 4 mg BUCCAL Q2H PRN PRN Reason: Nicotine Cravings Omeprazole (Omeprazole 20 Mg Capsule.Dr) 20 mg PO DAILY PRN PRN Reason: GERD Sx Last Admin: 07/16/24 20:54 Dose: 20 mg Trazodone HCl (Trazodone Hcl 50 Mg Tablet) 50 mg PO BEDTIME [id number] PRN PRN Reason: Insomnia Venlafaxine HCl (Venlafaxine Hcl Er 75 Mg Cap.Er.24h) 75 mg PO DAILY [facility] Last Admin: 07/17/24 08:07 Dose: 75 mg Vitamin D (Cholecalciferol (Vitamin D3) 25 Mcg Tablet) 25 mcg PO DAILY [facility] Last Admin: 07/17/24 08:07 Dose: 25 mcg Allergies Allergies Allergy/AdvReac Type Severity Reaction Status Date / Time Penicillins Allergy Severe RASH Verified 07/15/24 14:54 fluphenazine Allergy Unknown Verified 07/12/24 16:28 haloperidol [From Haldol] Allergy Unknown Verified 07/12/24 16:31 lithium Allergy Unknown Verified 07/12/24 16:31 paliperidone Allergy Unknown Verified 07/12/24 16:31 lithium citrate Allergy Intermediate Rash Uncoded 07/15/24 14:55 Assessment & Plan Assessment & Plan (1) PTSD (post-traumatic stress disorder): Status: Acute Code(s): F43.10 - Post-traumatic stress disorder, unspecified (2) Cocaine use disorder: Status: Acute Code(s): F14.10 - Cocaine abuse, uncomplicated Plan 07/13: restart outpt meds. abstain from cocaine. stabilize inpatient. referral for rehab. 07/14: increase clonidine to 0.15 BID for BP and anxiety. otherwise continue current mgmt. 07/15: continue tx. monitor BP. 07/16: continue tx. 07/17: BP trending back up past 24H. sleep inconsistent. increase HS clonidine to 0.2 mg, otherwise continue current mgmt. 3-day up weds, discharge weds. pt to travel to [place] to stay with her daughter and new grandchild. Reason for continued inpatient stay Substantial Risk for: rapid decompensation Time Spent With Patient Time: Total time managing care of this patient today __25__ minutes.
[2024-07-17] MEDS: Milk of Magnesia 30 ML ORAL.SUSP PO (16:02)
[2024-07-17 20:08] VITALS: BP 138/83; PULSE 84; RESP 16; TEMP 36.4; O2SAT 99
[2024-07-17] MEDS: cloNIDine HCL 0.2 MG TABLET PO (21:00)
[2024-07-17] MEDS: Divalproex Sodium 250 MG TABLET.DR PO (21:00)
[2024-07-18 08:00] VITALS: BP 125/83; PULSE 72; RESP 14; TEMP 36.4; O2SAT 99
[2024-07-18 08:34] VITALS: BP 125/83
[2024-07-18] MEDS: Cholecalciferol (Vitamin D3) 25 MCG TABLET PO (08:34)
[2024-07-18] MEDS: Venlafaxine HCl ER 75 MG CAP.ER.24H PO (08:34)
[2024-07-18] MEDS: hydroCHLOROthiazide 12.5 MG TABLET PO (08:34)
[2024-07-18 08:35] VITALS: BP 122/75
[2024-07-18] MEDS: cloNIDine HCL 0.1 MG TABLET 0.15 MG PO (08:35)
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
[2024-07-18 20:00] VITALS: BP 127/83; PULSE 81; RESP 16; TEMP 37.2; O2SAT 100
[2024-07-18] MEDS: Divalproex Sodium 250 MG TABLET.DR PO (21:32)
[2024-07-18 21:33] VITALS: BP 127/83
[2024-07-18] MEDS: cloNIDine HCL 0.2 MG TABLET PO (21:33)
[2024-07-19 07:45] VITALS: BP 118/74; PULSE 76; RESP 16; TEMP 36.3; O2SAT 99
[2024-07-19 07:57] VITALS: BP 118/74
[2024-07-19] MEDS: hydroCHLOROthiazide 12.5 MG TABLET PO (07:57)
[2024-07-19] MEDS: Venlafaxine HCl ER 75 MG CAP.ER.24H PO (07:57)
[2024-07-19] MEDS: Cholecalciferol (Vitamin D3) 25 MCG TABLET PO (07:57)
[2024-07-19 07:58] VITALS: BP 118/74
[2024-07-19] MEDS: cloNIDine HCL 0.1 MG TABLET 0.15 MG PO (07:58)
== END 2024-07-19 09:50 | disposition home or self-care (01) | DRG 755 ==
PROVIDERS: Admitting Provider Psychiatry & Neurology Psychiatry; PCP Dentist General Practice; Visit Provider Psychiatry & Neurology Psychiatry
DX: F43.12 Post-traumatic stress disorder, chronic (principal); R45.851 Suicidal ideations; R45.850 Homicidal ideations; I10 Essential (primary) hypertension; F14.10 Cocaine abuse, uncomplicated; Z62.810 Personal history of physical and sexual abuse in childhood; Z62.811 Personal history of psychological abuse in childhood; Z79.899 Other long term (current) drug therapy
CPT/HCPCS: 36415; 80061; 82607; 82746; 83036; 84439; 84443

== ENCOUNTER → 2024-07-12 15:51 | Outpatient (BNV) | payer MEDICAID, SELFPAY | PROVIDERS: Admitting Provider Psychiatry & Neurology Psychiatry; PCP Dentist General Practice; Visit Provider Nurse Practitioner Family | DX: I10 Essential (primary) hypertension (principal) | CPT/HCPCS: 99221 ==

== ENCOUNTER → 2024-07-12 15:51 | Outpatient (BNV) | payer OTHER, SELFPAY | PROVIDERS: Admitting Provider Psychiatry & Neurology Psychiatry; PCP Dentist General Practice; Visit Provider Psychiatry & Neurology Psychiatry | DX: F14.10 Cocaine abuse, uncomplicated (principal); F43.11 Post-traumatic stress disorder, acute | CPT/HCPCS: 99233 ==

== ENCOUNTER 2024-08-21 18:29 | Inpatient (IN) | payer OTHER, SELFPAY ==
[2024-08-21 19:08] VITALS: BP 127/83; PULSE 81; RESP 14; TEMP 36.8; O2SAT 98
[2024-08-21 19:09] VITALS: BMI 33.4
--- NOTE | 2024-08-21 19:18 | PC.NURSE ---
Pt arrived to unit at [address] [facility]. Safety check completed. Skin check unremarkable. VS obtained and documented. Pt was oriented to unit, and provided with toiletries and food/fluids. Covering provider notified of pt's arrival and need for admission orders. Med rec completed. Admission to be completed by next shift.
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
[2024-08-21 21:38] VITALS: BP 127/83
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
[2024-08-22 08:00] VITALS: BP 109/65; PULSE 75; TEMP 36.4; O2SAT 100
[2024-08-22] MEDS: Venlafaxine HCl ER 75 MG CAP.ER.24H PO (08:49)
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
--- NOTE | 2024-08-22 10:57 | HO.PM.IMCN ---
History of Present Illness Data of Consult Service Date: 08/22/24 Primary Care Provider: Unknown Physician HPI Reason for consult: Medical management 54-year-old female with past medical history of schizoaffective disorder, GERD, IBS, hypertension presented to [facility] with SI/HI with plans to cut or burn herself. She is medically cleared at [facility], her CBC was within normal limits, her creatinine was slightly elevated. She has a history of pituitary tumor removal in 2003, she periodic refills with Dr. Simons. She was found to have positive cocaine on her tox screen. Reports using 3 to 6 times a week. She denies any medical concerns other than GERD. She denies any other medical history or concerns. Her vitals are reviewed they are stable. Review of Systems Review of Systems: Denies any shortness of breath, chest pain, dizziness, lightheadedness, abdominal pain or discomfort, nausea vomiting or diarrhea PMFSH Social History Household Members: None Housing: Apartment Do you presently have visiting nurse or other home services: No Patient Tobacco Use Status: Never used Tobacco Second Hand Smoke Exposure: No Currently Displaying Signs/Symptoms of Drug Intoxication Withdrawal: No Have you been hit, kicked, punched, or otherwise hurt by someone within the past year? If so, by whom?: No Do you feel safe in your current relationship?: No Current Relationship Is there a partner from a previous relationship who is making you feel unsafe now?: No Are you made to feel afraid or neglected: No Advance Directives: No Advance Directives Information Provided: No Do you have thoughts of harming others: None Do you have a plan to hurt others: No Plan Recently lost weight without trying: No Eating poorly because of decreased appetite: No Nutrition Risks: No Nutritional Risk Patient : No : No Poor oral hygiene: No service: No Sexual orientation: Straight/Heterosexual Meds Allergies Allergy/AdvReac Type Severity Reaction Status Date / Time Penicillins Allergy Severe RASH Verified 07/15/24 14:54 fluphenazine Allergy Unknown Verified 07/12/24 16:28 haloperidol (From Haldol) Allergy Unknown Verified 07/12/24 16:31 lithium Allergy Unknown Verified 07/12/24 16:31 paliperidone Allergy Unknown Verified 07/12/24 16:31 lithium citrate Allergy Intermediate Rash Uncoded 07/15/24 14:55 Active Medications: Current Medications Acetaminophen (Acetaminophen 325 Mg Tablet) 650 mg PO Q6H PRN PRN Reason: Headache/Pain, Scale 1-10 Al Hydroxide/Mg Hydroxide (Magnesium Hydrox/Alum Hydrox 30 Ml Oral.Susp) 30 ml PO Q6H PRN PRN Reason: Heartburn/Nausea Clonidine HCl (Clonidine Hcl 0.2 Mg Tablet) 0.2 mg PO BEDTIME [facility]; Protocol Last Admin: 08/21/24 21:38 Dose: 0.2 mg Clonidine HCl (Clonidine Hcl 0.1 Mg Tablet) 0.15 mg PO DAILY [facility]; Protocol Last Admin: 08/22/24 08:49 Dose: 0.15 mg Hydrochlorothiazide (Hydrochlorothiazide 12.5 Mg Tablet) 12.5 mg PO DAILY [facility]; Protocol Last Admin: 08/22/24 08:49 Dose: 12.5 mg Hydroxyzine HCl (Hydroxyzine Hcl 25 Mg Tablet) 25 mg PO Q6H PRN PRN Reason: mild anxiety Magnesium Hydroxide (Milk Of Magnesia 30 Ml Oral.Susp) 30 ml PO DAILY PRN PRN Reason: Constipation Nicotine (Nicotine 21 Mg Patch.Td24) 21 mg TRANSDERMA DAILY PRN PRN Reason: nicotine craving Nicotine Polacrilex (Nicotine Polacrilex 2 Mg Gum) 2 mg BUCCAL Q2H PRN PRN Reason: Nicotine Cravings Olanzapine (Olanzapine 5 Mg Tablet) 5 mg PO BID PRN PRN Reason: agitation Omeprazole (Omeprazole 20 Mg Capsule.Dr) 20 mg PO DAILY PRN PRN Reason: Acid reflux Trazodone HCl (Trazodone Hcl 50 Mg Tablet) 50 mg PO BEDTIME MRX1 PRN PRN Reason: Insomnia Venlafaxine HCl (Venlafaxine Hcl Er 75 Mg Cap.Er.24h) 75 mg PO DAILY [facility] Last Admin: 08/22/24 08:49 Dose: 75 mg Vitamin D (Cholecalciferol (Vitamin D3) 25 Mcg Tablet) 25 mcg PO DAILY [facility] Last Admin: 08/22/24 08:49 Dose: 25 mcg Physical Exam Vital Signs and Narrative: Vital Signs: Last Vital Signs Temp 97.5 F 08/22/24 08:00 Pulse 75 08/22/24 08:00 Resp 14 08/21/24 19:08 BP 109/65 08/22/24 08:00 Pulse Ox 100 08/22/24 08:00 O2 Del Method Room Air 08/22/24 08:00 BMI result Body Mass Index 33.4 CONST: Alert and oriented, in NAD. Well nourished HEENT: Normocephalic, atraumatic, MMM, Eyes clear, Neck supple RESP: Lungs clear, RRR even and regular HEART:,RRR, S1, S2. No edema GI:Abdomen Soft NT, ND. + BS times four :Deferred SKIN: Warm dry and intact, no visible lesions or rashes NEURO:CN II-XII Intact bilaterally, Sensation intact. Speech clear PSYCH: Normal affect Assessment and Plan (1) HTN (hypertension): Status: Acute Plan Schizoaffective disorder with SI/HI Treatment per Psychiatry team Hypertension Her blood pressure is stable on review. Continue hydrochlorothiazide 12.5 mg Continue clonidine as ordered Follow labs, If creatinine continues to be elevated, consider DC HCTZ GERD Patient would like omeprazole available as needed Thank you for allowing me to participate in the care of this patient. Signing off at this time. Please reconsult of any acute complaints or issues arise
[2024-08-22 21:33] VITALS: BP 131/73; PULSE 68; RESP 18; TEMP 36.7; O2SAT 99
[2024-08-22 21:36] VITALS: BP 131/73
[2024-08-23 07:57] VITALS: BP 128/80; PULSE 62; TEMP 36.4; O2SAT 100
[2024-08-23 08:27] LABS: Hemoglobin A1C 125.8222 umol/L; Total Hemoglobin (HGBA1C) 3451.2640 umol/L
[2024-08-23] MEDS: Venlafaxine HCl ER 75 MG CAP.ER.24H PO (08:42)
[2024-08-23 08:43] LABS: Alanine Aminotransferase 23 U/L (0-31); Albumin Level 3.8 g/dL (3.5-5.0); Alkaline Phosphatase 93 U/L (39-117); Anion Gap 11 (12-20); Aspartate Amino Transferase 26 U/L (5-31); Blood Urea Nitrogen 15 mg/dL (9-16); Calcium 8.6 mg/dL (8.4-10.2); Carbon Dioxide 27 mmol/L (22-29); Chloride 106 mmol/L (96-108); Cholesterol 189 mg/dL (<200); Creatinine Clr Calc Pharmacy 66.0; Estimated Glomerular Filt Rate > 60; HDL Cholesterol 46 mg/dL (>40); Potassium 3.9 mmol/L (3.3-5.1); Sodium 140 mmol/L (135-145); Total Protein 6.7 g/dL (6.5-8.0); Triglycerides 109 mg/dL (<150)
[2024-08-23 09:01] LABS: Free T4 (Free Thyroxine) 0.86 ng/dL (0.71-1.85); Thyroid Stimulating Hormone 1.14 uIU/mL (0.32-4.0)
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
[2024-08-23 21:29] VITALS: BP 128/71
[2024-08-24 07:00] VITALS: BMI 34.1
[2024-08-24 08:00] VITALS: BP 141/75; PULSE 74; RESP 16; TEMP 36.8; O2SAT 99
[2024-08-24] MEDS: Venlafaxine HCl ER 75 MG CAP.ER.24H PO (08:57)
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
[2024-08-24 19:47] VITALS: BP 129/72; PULSE 71; TEMP 36.7; O2SAT 99
[2024-08-25 08:25] VITALS: BP 126/79; PULSE 74; TEMP 36; O2SAT 98
[2024-08-25] MEDS: Venlafaxine HCl ER 75 MG CAP.ER.24H PO (09:07)
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
[2024-08-25 21:26] VITALS: BP 136/93
[2024-08-26] VITALS: BP 136/93; PULSE 83; RESP 16; TEMP 37.1; O2SAT 100
[2024-08-26 08:45] VITALS: BP 120/78; PULSE 68; TEMP 36.3; O2SAT 99
[2024-08-26 08:46] VITALS: BP 120/78
[2024-08-26] MEDS: Venlafaxine HCl ER 75 MG CAP.ER.24H PO (08:46)
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
[2024-08-26 21:48] VITALS: BP 136/83
[2024-08-27] VITALS: BP 138/89; PULSE 66; RESP 16; TEMP 36.8; O2SAT 93
[2024-08-27 08:00] VITALS: BP 124/75; PULSE 80; RESP 16; TEMP 36.4; O2SAT 98
[2024-08-27 09:10] VITALS: BP 124/75
[2024-08-27] MEDS: Venlafaxine HCl ER 75 MG CAP.ER.24H PO (09:10)
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
[2024-08-27 16:00] VITALS: BP 129/87; PULSE 97; RESP 16; TEMP 36.3; O2SAT 95
[2024-08-27 21:06] VITALS: BP 129/87
[2024-08-28 07:59] VITALS: BP 127/75; PULSE 67; RESP 16; TEMP 36.5; O2SAT 97
[2024-08-28] MEDS: Venlafaxine HCl ER 75 MG CAP.ER.24H PO (08:50)
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
[2024-08-28 19:37] VITALS: BP 137/67; PULSE 93; TEMP 36.5; O2SAT 97
[2024-08-29 08:00] VITALS: BP 117/75; PULSE 96; RESP 16; TEMP 36.2; O2SAT 99
[2024-08-29 08:47] VITALS: BP 117/75
--- NOTE | 2024-08-29 08:57 | P.DS_ITS ---
DS: Providers Provider Date of Service: 08/29/24 Date of admission: 08/21/24 18:29 Date of discharge: 08/29/24 Primary care physician: Unknown Physician Admitting clinician: Becca Isaacs Attending physician on admission: Kranthi Schrader Consults: 08/21/24 19:12 Consult to Hospitalist Routine Comment: [place]ing [place] [facility] [place] [facility] Reason For Exam: External admission. Need for H+P Attending physician on discharge: Kranthi Schrader Discharging clinician: Alyssa Pineda DS: Diagnosis Discharge Diagnosis (1) Schizoaffective disorder, depressive type: Status: Acute (2) PTSD (post-traumatic stress disorder): Status: Acute (3) Cocaine use disorder: Status: Acute (4) HTN (hypertension): Status: Acute (5) MDD (major depressive disorder), recurrent episode, moderate: Status: Deleted DS: Medications Discharge Medications Home Medications: Previous Rx's ?Medication ?Instructions ?Recorded cholecalciferol (vitamin D3) 25 25 mcg PO DAILY 30 day s #30 tabs 07/18/24 mcg (1,000 unit) tablet clonidine HCl 0.1 mg tablet 0.15 mg PO DAILY 30 days # 45 tabs 07/18/24 clonidine HCl 0.2 mg tablet 0.2 mg PO BEDTIME 30 days #30 tabs 07/18/24 hydrochlorothiazide 12.5 mg capsule 12.5 mg PO DAILY 3 0 days #30 caps 07/18/24 venlafaxine 75 mg capsule,extended 75 mg PO DAILY 30 d ays #30 caps 07/18/24 release 24 hr Mental Status Exam Mental Status Exam Patient Appearance: Appropriate Patient Orientation: Person, Place, Time and Situation Level of Consciousness: Alert Patient Behavior: Talkative and Good Eye Contact Mood Description: Appropriate and Constricted Affect Description: Appropriate and Constricted Patient Cognition Impaired: No Ability to Follow Directions: Good Speech Pattern: Spontaneous Speech Memory Description: Intact Hallucinations: None Delusions: Not Present Thought Process: Intact Thought Content: positive for Intact Judgement: Good Data Data Completed and Pending Completed studies during hospitalization [Text1]: 08/23/24 07:55 Sodium 140 Potassium 3.9 Chloride 106 Carbon Dioxide 27 Anion Gap 11 L BUN 15 Creatinine 0.95 Estim Creat Clear Calc 66.0 Estimated GFR > 60 Random Glucose 82 Estimat Average Glucose 111 Hemoglobin A1c % 5.5 Calcium 8.6 Total Bilirubin 0.1 AST 26 ALT 23 Alkaline Phosphatase 93 Total Protein 6.7 Albumin 3.8 Triglycerides 109 Cholesterol 189 LDL Cholesterol, Calc 122 H HDL Cholesterol 46 TSH 1.14 Free T4 0.86 DS: Summary Hospital Course Hospital Course: Admission to adult psychiatry for exacerbation of schizoaffective disorder with depression, PTSD and substance use disorder-cocaine. Medications were evaluated and adjusted. Pt was offered full milieu support to strengthen coping skills. Pt will return to her providers at [facility] where she has secured out patient treatment relationships. Status at Discharge Functional status at discharge: independent ambulation Overall status at discharge: patient is progressing back to baseline Time Spent with Patient Time attestation: Total time managing care of this patient today ____ minutes. Time spent: Less than 30 minutes Discharge Plan Discharge Anticipated Discharge Date/Time: 08/29/24 12:00 Patient Disposition: Home, Self-Care Discharge Diagnosis: PTSD Schizoaffective Disorder, Depressed Cocaine Use Disorder HTN Referrals: [facility] [Other] - 1 Week Referral Note: website- [email or web address] [facility]- Psychiatry with Ladonna Hay [Other, Psychiatry] - 09/05/24 3:00 pm [facility]- Therapy with Margarita Berman [Other] - 08/30/24 1:00 pm PCP- [facility] with JESUS ALBERTO Alvarado [Other] - 09/20/24 11:20 am Discharge Medications: New acetaminophen 325 mg Tablet 650 mg PO Q6H PRN (Reason: Headache/Pain, Scale 1-10) Qty: 0 0RF hydroxyzine HCl 25 mg Tablet 25 mg PO Q6H PRN (Reason: mild anxiety) Qty: 15 0RF Vraylar 3 mg capsule 3 mg PO DAILY Qty: 30 0RF Continued clonidine HCl 0.1 mg Tablet 0.15 mg PO DAILY 30 Days Qty: 45 0RF Protocol: Hold for SBP< HOLD for SBP < : 90 venlafaxine 75 mg Capsule,Extended Release 24hr 75 mg PO DAILY 30 Days Qty: 30 0RF clonidine HCl 0.2 mg Tablet 0.2 mg PO BEDTIME 30 Days Qty: 30 0RF Protocol: Hold for SBP< HOLD for SBP < : 90 hydrochlorothiazide 12.5 mg capsule 12.5 mg PO DAILY 30 Days Qty: 30 0RF cholecalciferol (vitamin D3) 25 mcg (1,000 unit) Tablet 25 mcg PO DAILY 30 Days Qty: 30 0RF Discharge Orders: Discharge Order (Routine); Ordered 08/29/24 Ordered By: Alyssa Pineda Diet: Advance to usual diet Activity on Discharge: As tolerated Stand Alone Forms: Patient Portal Discharge page, Community Support Print Language: Indonesian Care Plan Goals: Abstinence from Substances Mood and Behavioral Stabilization Health Concerns: Abstinence from Substances Mood and Behavioral Stabilization Plan of Treatment: Attend scheduled appointments Take medications as directed Call/Return as needed Assessment: No SI,HI,AH,VH. No sx of acute ariel or psychosis Agrees with plan of care. Discharge Date/Time: 08/29/24 11:31
== END 2024-08-29 11:31 | disposition home or self-care (01) | DRG 750 ==
PROVIDERS: Nurse Practitioner Psychiatric/Mental Health; Admitting Provider Psychiatry & Neurology Psychiatry; Visit Provider Psychiatry & Neurology Psychiatry
DX: F25.1 Schizoaffective disorder, depressive type (principal); R45.851 Suicidal ideations; F33.1 Major depressive disorder, recurrent, moderate; F14.10 Cocaine abuse, uncomplicated; K21.9 Gastro-esophageal reflux disease without esophagitis; F43.10 Post-traumatic stress disorder, unspecified; I10 Essential (primary) hypertension; Z79.899 Other long term (current) drug therapy
CPT/HCPCS: 36415; 80053; 80061; 83036; 84439; 84443

== ENCOUNTER → 2024-08-21 18:29 | Outpatient (BNV) | payer OTHER, SELFPAY | PROVIDERS: Admitting Provider Psychiatry & Neurology Psychiatry; Visit Provider Nurse Practitioner Psychiatric/Mental Health | DX: F25.1 Schizoaffective disorder, depressive type (principal); F14.10 Cocaine abuse, uncomplicated; F43.11 Post-traumatic stress disorder, acute; I10 Essential (primary) hypertension | CPT/HCPCS: 99231; 99232 ==

== ENCOUNTER → 2024-08-21 18:29 | Outpatient (BNV) | payer MEDICAID, SELFPAY | PROVIDERS: Admitting Provider Psychiatry & Neurology Psychiatry; Visit Provider Nurse Practitioner Family | DX: Z20.2 Contact with and (suspected) exposure to infections with a predominantly sexual mode of transmission (principal) | CPT/HCPCS: 99429 ==

== ENCOUNTER 2025-01-15 17:54 | Outpatient (BNV) | payer MEDICAID, SELFPAY | END 2025-01-17 09:32 | PROVIDERS: Admitting Provider Psychiatry & Neurology Psychiatry; Visit Provider Internal Medicine | DX: R94.31 Abnormal electrocardiogram [ECG] [EKG] (principal); Z13.6 Encounter for screening for cardiovascular disorders | CPT/HCPCS: 93010 ==

== ENCOUNTER 2025-01-15 17:54 | Inpatient (IN) | payer OTHER, SELFPAY ==
--- OUTSIDE RECORDS SUMMARY | 2025-01-10 16:38 | XMS_ITS | Encounter Summary ---
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 Oral cloNIDine 0.2 mg tablet Commonly known as: CATAPRES Take 1 tablet (0.2 mg total) by mouth at bedtime. at bedtime. divalproex [address] tablet Commonly known as: DEPAKOTE Take 1 tablet (250 mg total) by mouth at bedtime. folic acid 400 mcg tablet Commonly known as: FOLVITE Take 1 Tablet by mouth daily. hydroCHLOROthiazide 12.5 mg tablet Take 1 Tablet by mouth daily. hydrOXYzine HCL 10 mg tablet Commonly known as: ATARAX Take 1 tablet (10 mg total) by mouth 3 times daily as needed. ibuprofen 600 mg tablet Commonly known as: ADVIL,MOTRIN Take 1 tablet (600 mg total) by mouth every 6 (six) hours if needed for moderate pain. ketoconazole 2 % cream Commonly known as: NIZORAL Apply 1 Application topically 1 (one) time each day. To chest olmesartan 5 mg tablet Commonly known as: BENICAR Take 1 tablet (5 mg total) by mouth daily. omeprazole [address] capsule Commonly known as: PriLOSEC Take by mouth. Take 1 Capsule by mouth daily. - Oral pyrithione zinc 1 % shampoo Commonly known as: HEAD AND SHOULDERS Apply 1 Application topically once daily as needed for dandruff or itching. tobramycin-dexAMETHasone ophthalmic ointment Commonly known as: TOBRADEX Apply 1 Application to both eyes 4 (four) times a day. venlafaxine XR 37.5 mg 24 hr capsule Commonly known as: EFFEXOR-XR Take 1 capsule (37.5 mg total) by mouth 1 (one) time each day. venlafaxine XR 75 mg 24 hr capsule Commonly known as: EFFEXOR-XR Take 1 capsule (75 mg total) by mouth 1 (one) time each day. Vitamin D3 25 mcg (1,000 unit) tablet Generic drug: cholecalciferol Take 1 tablet (1,000 Units total) by mouth 1 (one) time each day. Where to Get Your Medications These medications were sent to [facility]/pharmacy #[id number] [place] [id number] [id number] acetaminophen 500 mg tablet methocarbamoL 500 mg tablet methylPREDNISolone 32 mg tablet naproxen 500 mg tablet FINAL IMPRESSION DIAGNOSES: 1. Paresthesias in right hand 2. Nonintractable headache, unspecified chronicity pattern, unspecified headache type The patient was discharged, all questions were answered and we engaged in shared decision-making with the plan, I stressed the importance of prompt follow-up to the patient and they were advised to follow-up and/or referrals placed as below: your doctor Schedule an appointment as soon as possible for a visit [facility] [address] [facility] [id number] As needed, If symptoms worsen (Please note that portions of this note were completed with a voice recognition program. Quite often unanticipated grammatical, syntax, homophones, and other interpretive errors are inadvertently transcribed by the computer software. These should have been corrected during proofreading. If you haveany questions, please contact the author of this note for clarification.) Note to patient: It was a pleasure taking care of you today. The Cures Act makes medical notes like this one available to patients in the interest of transparency. However, be advised that this is a medical document. It is intended as physician to physician communication. It is writtenin medical language and may contain abbreviations or verbiage that are unfamiliar. It may appear blunt or direct or even insulting if taken out of the clinical communication context. Medical documents are not meant to communicate to patients, they are intended to carry relevant information, facts as evident, and the clinical opinion of the practitioner. To Chavez MD (electronically signed) 8:49 PM EST [1] Past Medical History: Diagnosis Date GERD (gastroesophageal reflux disease) Hypertension Irritable bowel disease 2022 per EMR Pituitary adenoma ([facility] V24, [facility] V28) 2002 per EMR PTSD (post-traumatic stress disorder) 08/20/2024 Schizoaffective disorder, depressive type ([facility] V24, [facility] V28) 08/19/2024 Stimulant use disorder 08/20/2024 cocaine use [2] There is no problem list on file for this patient. [3] History reviewed. No pertinent surgical history. [4] No family history on file. To Chavez MD 01/11/252048 documented in this encounter Plan of Treatment Not on file documented as of this encounter Procedures Procedure Name Priority Date/Time Associated Diagnosis Comments CT HEAD WO CONTRAST STAT 01/10/2025 7 :31 PM EST MR CERVICAL SPINE WO CONTRAST STAT 01/10/2025 7:30 PM EST documented in this encounter Results * CT Head wo Contrast (01/10/2025 7:31 PM EST) Anatomical Region Laterality Modality Head and Neck Computed Tomogra phy 01/10/2025 8:33 PM EST Impressions 01/10/2025 8:33 PM EST 1. No acute intracranial findings. This document has been electronically signed by: Cris De Leon MD on 01/10/2025 20:33:45 Narrative 01/10/2025 8:33 PM EST INDICATION: right arm weakness and numbness [address] head without contrast Comparison: CT/SR - CT HEAD WO CONTRAST - 10/06/24 15:13 EDT Findings: No intra-axial mass, midline shift, hydrocephalus, or acute hemorrhage. No significant atrophy-like change or white matter disease. The visualized paranasal sinuses and mastoid air cells are normal. The orbits are unremarkable. No skull fracture. Procedure Note Cris De Leon MD - 01/10/2025 INDICATION: right arm weakness and numbness [address] head without contrast Comparison: CT/SR - CT HEAD WO CONTRAST - 10/06/24 15:13 EDT Findings: No intra-axial mass, midline shift, hydrocephalus, or acute hemorrhage. No significant atrophy-like change or white matter disease. The visualized paranasal sinuses and mastoid air cells are normal. The orbits are unremarkable. No skull fracture. IMPRESSION: 1. No acute intracranial findings. This document has been electronically signed by: Cris De Leon MD on 01/10/2025 20:33:45 us oT Chavez MD IMSami CT PROCEDURES Final Result * MR Cervical Spine wo Contrast (01/10/2025 7:30 PM EST) Anatomical Region Laterality Modality C-spine, Spine Magnetic Resonan ce 01/10/2025 8:41 PM EST Impressions 01/10/2025 8:41 PM EST No acute findings. This document has been electronically signed by: Cris De Leon MD on 01/10/2025 20:41:05 Narrative 01/10/2025 8:41 PM EST INDICATION: right arm weakness and numbness 2 weeks MR cervical spine without gadolinium Comparison: CT/SR - CT C SPINE WO CONTRAST - 10/06/24 15:13 EDT Findings: Straightening of the cervical spine is similar to prior CT. No acute fractures or pathologic bone lesions. Cervical cord normal size and signal. Multilevel disc bulges without significant spinal canal or neural foraminal stenosis. No acute findings on limited view of the intracranial contents. No cervical fluid collections or masses. Procedure Note Cris De Leon MD - 01/10/2025 INDICATION: right arm weakness and numbness 2 weeks MR cervical spine without gadolinium Comparison: CT/SR - CT C SPINE WO CONTRAST - 10/06/24 15:13 EDT Findings: Straightening of the cervical spine is similar to prior CT. No acute fractures or pathologic bone lesions. Cervical cord normal size and signal. Multilevel disc bulges without significant spinal canal or neural foraminal stenosis. No acute findings on limited view of the intracranial contents. No cervical fluid collections or masses. IMPRESSION: No acute findings. This document has been electronically signed by: Cris De Leon MD on 01/10/2025 20:41:05 [facility] PROCED[facility] Final Result documented in this encounter Visit Diagnoses Diagnosis Paresthesias in right hand- Primary Disturbance of skin sensation Nonintractable headache, unspecified chronicity pattern, unspecified headache type documented in this encounter Administered Medications Inactive Administered Medications - up to 3 most recent administrations Medication Order MAR Action Action Date Dose Rate Site acetaminophen (TYLENOL) tablet 1,000 mg 1,000 mg, oral, Once, On Wed01/10/25 at 2000, For 1 dose Given 01/10/2025 8:03 PM EST 1,000 mg diphenhydrAMINE (BENADRYL) injection 50 mg 50 mg, intravenous, Once, On Wed01/10/25 at 211, For 1 dose Given 01/10/2025 9:45 PM EST 50 mg ketorolac (TORADOL) injection 30 mg 30 mg, intramuscular, Once, On Wed01/10/25 at 1639, For 1 dose Given 01/10/2025 4:51 PM EST 30 mg Left Anterior Thigh methylPREDNISolone sodium succ (SOLU-Medrol) injection 125 mg 125 mg, intramuscular, Once, On Wed01/10/25 at 1639, For 1 dose, Reconstitute each 125 mg vial with 2 mL sterile water for injection to a concentration of 62.5 mg/mL. Given 01/10/2025 4:52 PM EST 125 mg Right Anterior Thigh metoclopramide (REGLAN) injection 10 mg 10 mg, intravenous, Once, On Wed01/10/25 at 2115, For 1 dose, Doses LESS than or equal to 10 mg can be given IV push undiluted over 1 minute Given 01/10/2025 9:48 PM EST 10 mg sodium chloride 0.9 % bolus 1,000 mL 1,000 mL, intravenous, at 1,000 mL/hr, Administer over 1 Hours, Once, On Wed01/10/25 at 211, For 1 dose New Bag 01/10/2025 9:56 PM EST 1,000 mL 1000 mL/hr documented in this encounter Active and Recently Administered Medications Times are shown in EST. Scheduled Medication Order 01/08/2025 01/09/2025 01/10/2025 acetaminophen (TYLENOL) tablet 1,000 mg (COMPLETED) 1,000 mg, oral, Once, On Wed01/10/25 at 2000, For 1 dose 2002 (Given - Provid er: Alesia Adam RN) diphenhydrAMINE (BENADRYL) injection 50 mg (COMPLETED) 50 mg, intravenous, Once, On Wed01/10/25 at 2116, For 1 dose 2144 (Given - Provid er: Hiral Alba RN) ketorolac (TORADOL) injection 30 mg (COMPLETED) 30 mg, intramuscular, Once, On Wed01/10/25 at 1639, For 1 dose 165 (Given - Provid er: Ximena Garcia RN) methylPREDNISolone sodium succ (SOLU-Medrol) injection 125 mg (COMPLETED) 125 mg, intramuscular, Once, On Wed01/10/25 at 1639, For 1 dose, Reconstitute each 125 mg vial with 2 mL sterile water for injection to a concentration of 62.5 mg/mL. 165 (Given - Provid er: Ximena Garcia RN) metoclopramide (REGLAN) injection 10 mg (COMPLETED) 10 mg, intravenous, Once, On Wed01/10/25 at 2116, For 1 dose, Doses LESS than or equal to 10 mg can be given IV push undiluted over 1 minute 2147 (Given - Provid er: Hiral Alba RN) sodium chloride 0.9 % bolus 1,000 mL (COMPLETED) 1,000 mL, intravenous, at 1,000 mL/hr, Administer over 1 Hours, Once, On Wed01/10/25 at 2116, For 1 dose 2155 (New Bag - Prov ider: Hiral Alba RN)2338 (Stopped - Provider: Hiral Alba RN) documented in this encounter Care Teams Assistant Sales Manager Relationship Specialty Start Date End Date Physician, No Pcp PCP - General 11/16/24 documented as of this encounter
--- OUTSIDE RECORDS SUMMARY | 2025-01-12 15:18 | XMS_ITS | Encounter Summary ---
Author Organization [facility] Address [address] [place] [address] Care Team Providers Care Lance Crewmember Name Role Phone Physician, No Pcp Primary Care Provider Unavaila ble Reason for Visit * Reason Comments Suicidal Encounter Details Date Type Department Care Team ([facility] st Contact Info) Description 01/12/2025 3:18 PM EST - 01/15/2025 5:25 PM EST Emergency [facility] Emergency [address] [place] [phone] Christian Kaur MD [address] [facility] [address] [place], [place] [id number] To Chavez MD [address] [facility] [place] [address] Nick Fry MD [address] [place] [address] John Ga MD [address] [place] [address] Yanna Rubio MD [address] [place] [address] Saadia Cummings MD [address] [place] [address] Suicidal ideation (Primary Dx); Cocaine use [facility]position[facility] Social History Tobacco Use Types Packs/Day Years [...] Sign Reading Time Taken Comments Blood Pressure 134/90 01/15/2025 3:49 PM EST Pulse 80 01/15/2025 3:49 PM EST Temperature 36.7 C (98.1 F) 01/15/2025 3:49 PM EST Respiratory Rate 16 01/15/2025 3:49 PM EST Oxygen Saturation 98% 01/15/2025 3:49 PM EST Inhaled Oxygen Concentration - - Weight 80.3 kg (177 lb) 01/12/2025 3:41 PM EST Height 157.5 cm (5' 2 ) 01/12/2025 3:41 PM EST Body Mass Index 32.37 01/12/2025 3:41 PM EST documented in this encounter Functional [...] Score (Lifetime/Recent) Answer Date of Assessment Author High Risk 01/14/2025 11:57 PM Clementina Hargrove RN * [place] Suicide Severity Rating Scale (Screener/Recent Self-Report) Question Answer Date of Assessment Author 1. Wish to be (Past 1 Month) Yes 11:57 PM Clementina Hargrove RN 2. Non-Specific Active Suici jd Thoughts (Past 1 Month) No 01/14/2025 11:57 PM Cinthya Hargrove RN 3. Active Suicidal Ideation with any Methods (Not Plan) Without Intent to Act (Past 1 Month) No 01/14/2025 11:57 PM Clementina Hargrove RN 4. Active Suicidal Ideation with Some Intent to Act, Without Specific Plan (Past 1 Month) No 01/14/2025 11:57 PM Clementina Hargrove RN 5. Active Suicidal Ideation with Specific Plan and Intent (Past 1 Month) Yes 01/14/2025 11:57 PM Clementina Hargrove RN 6. Suicidal Behavior (Lifetime) Yes 11:57 PM Clementina Hargrove RN 6. Suicidal Behavior (3 Months) No 11:57 PM Clementina Hargrove RN documented as of this encounter Mental Status * Because of a physical, mental, or emotional condition, do you have serious difficulty concentrating, remembering, or making decisions? (5 years old or older) Answer Entry Date Author No 10/06/2024 2:40 PM EDT Shivam Shields RN documented in this encounter Medications at [...] topically 2 (two) times a day. 04/07/2024 divalproex (DEPAKOTE) [address] tablet Take [...] day for 10 days. 20 tablet 01/10/2025 naproxen (NAPROSYN) 500 mg tablet Take 1 tablet (500 mg total) by mouth 2 (two) times a day with meals for 15 days. 30 tablet 01/10/2025 olmesartan (BENICAR) 5 mg tablet Take 1 [...] mg total) by mouth at bedtime. 01/10/2025 6 tobramycin-dexAM ETHasone (TOBRADEX) ophthalmic ointment Apply 1 Application to both eyes 4 (four) times a day. tobramycin-dexAM ETHasone (TOBRADEX) ophthalmic suspension Administer 1 drop into both eyes every 4 (four) hours while awake. 11/13/2024 venlafaxine XR (EFFEXOR-XR) 37.5 mg 24 hr capsule Take 1 capsule (37.5 mg total) by mouth 1 (one) time each day. 06/26/2024 venlafaxine XR (EFFEXOR-XR) 75 mg 24 hr capsule Take 1 capsule (75 mg total) by mouth 1 (one) time each day. 07/24/2024 venlafaxine XR (EFFEXOR-XR) 75 mg 24 hr capsule Take 1 capsule (75 mg total) by mouth 1 (one) time each day. 01/10/2025 Vitamin D3 25 mcg (1,000 unit) tablet Take 1 tablet (1,000 Units total) by mouth 1 (one) time each day. 07/18/2024 Vraylar 3 mg capsule Take 1 capsule (3 mg total) by mouth 1 (one) time each day. 08/29/2024 documented as of this encounter Discharge Disposition Disposition Code Departure Means Destination Comment [facility] M 3 documented in this encounter Progress Notes * Fabi Bruner - 01/15/2025 3:20 PM EST BED FOUND - Patient accepted to [facility], unit M3, by Dr Danette Richardson for today 01/15/25 530pm admission * Yudy Peters UTILIZATION REVIEW RN - 01/15/2025 12:41 PM EST Psychiatry Progress note Patient seen by me, nursing report reviewed with the interdisciplinary team, medications and chart history reviewed. Subjective: (reported issues and events over the last 24 hours) I am not safe, I need help Active Problems: No Active Problems: There are no active problems currently on the Problem List. Please update the Problem List and refresh. Objective: Seclusion/Restraint in last 24 hours: No Blood pressure 132/85, pulse 72, temperature 36.9 ??C (98.4 ??F), temperature source Oral, resp. rate 18, height 1.575 m (62 ), weight 80.3 kg (177 lb), SpO2 99%. Appearance/Grooming: eye contact good, grooming moderately kept, and well developed, well nourished Musculoskeletal: reports weakness and decreased ability to care for herself Orientation: Person, Place, and Time Mood: anxious, depressed, and sad Affect: mood-congruent Memory: Recent: good Remote: fair Attention Span: fair Concentration: fair Language Usage: Appropriate to age Speech: Coherent and Regular rate, rhythm, volume and articulation Fund. Of Knowledge: WNL Thought Processes: Abstract reasoning appropriate to age Thought Associations: Logical Thought Abnormalities or Psychosis: Not present Judgement: Fair Insight: fair Sleep: Every couple of days sleep a couple hours. Slept 3 hours while I was here which is good Appetite: no change Energy: no change Lab Results: Results for orders placed or performed during the hospital encounter of 01/12/25 Comprehensive metabolic panel Collection Time: 01/12/25 4:20 PM Result Value Ref Range Sodium 140 133 - 145 mmol/L Potassium 3.8 3.5 - 5.5 mmol/L Chloride 102 96 - 110 mmol/L CO2 29 21 - 32 mmol/L Anion Gap 9 3 - 11 Glucose 111 (H) 70 - 100 mg/dL BUN 16 5 - 25 mg/dL Creatinine 0.99 0.50 - 1.10 mg/dL eGFR 67 >=60 mL/min/1.73m2 BUN/Creatinine Ratio 16.2 Calcium 8.2 (L) 8.5 - 10.5 mg/dL AST (SGOT) 28 10 - 42 unit/L ALT (SGPT) 22 10 - 60 unit/L Alkaline Phosphatase 120 42 - 121 unit/L Total Protein 6.6 6.0 - 8.0 g/dL Albumin 4.2 3.2 - 5.0 g/dL Total Bilirubin 0.2 0.0 - 1.4 mg/dL Ethanol Collection Time: 01/12/25 4:20 PM Result Value Ref Range Ethanol Level <3 0 - 10 mg/dL Acetaminophen level Collection Time: 01/12/25 4:20 PM Result Value Ref Range Acetaminophen Level 5.8 (L) 10.0 - 30.0 mcg/mL Salicylate level Collection Time: 01/12/25 4:20 PM Result Value Ref Range Salicylate Level <3.0 2.0 - 29.0 mg/dL CBC auto differential Collection Time: 01/12/25 4:20 PM Result Value Ref Range WBC 14.7 (H) 4.8 - 10.8 K/mcL RBC 4.30 3.80 - 4.80 M/mcL Hemoglobin 13.1 11.5 - 16.0 g/dL Hematocrit 40.4 35.0 - 47.0 % MCV 93.1 79.0 - 98.0 FL MCH 30.2 27.0 - 32.0 pcg MCHC 32.4 32.0 - 37.0 g/dL RDW 13.4 11.0 - 15.0 % Platelets 262 130 - 400 K/mcL MPV 10.6 7.0 - 11.0 FL NRBC 0.0 <1.0 % NRBC Absolute 0.00 <0.10 K/mcL Neutrophils Relative 88.5 % Lymphocytes Relative 8.6 % Monocytes Relative 1.6 % Eosinophils Relative 0.0 % Basophils Relative 0.1 % Immature Granulocytes Relative 1.2 % Neutrophils Absolute 12.99 (H) 1.50 - 7.00 K/mcL Lymphocytes Absolute 1.27 1.00 - 5.00 K/mcL Monocytes Absolute 0.24 0.20 - 1.00 K/mcL Eosinophils Absolute 0.00 0.00 - 0.50 K/mcL Basophils Absolute 0.02 0.00 - 0.20 K/mcL Immature Granulocytes Absolute 0.17 (H) 0.00 - 0.03 K/mcL 12-Lead ECG Collection Time: 01/12/25 5:33 PM Result Value Ref Range Ventricular Rate ECG 62 BPM Atrial Rate 62 BPM P-R Interval 178 ms QRS Duration 78 ms Q-T Interval 428 ms QTc 434 ms P Wave [place] 52 degrees R [place] -2 degrees T [place] 19 degrees ECG Interpretation Normal sinus rhythm with sinus arrhythmia Normal ECG When compared with ECG of 21-AUG-2024 13:46, No significant change was found Confirmed by LILLIAM LIU ([id number]) on 01/13/2025 10:06:36 AM Drug abuse screen 8a panel, urine Collection Time: 01/12/25 6:50 PM Result Value Ref Range Amphetamine Screen, Ur Negative Negative Barbiturate Screen, Ur Negative Negative Benzodiazepine Screen, Ur Negative Negative Cocaine Screen, Ur Positive (A) Negative Opiate Screen, Ur Negative Negative Cannabinoid (THC) Screen, Ur Negative Negative Oxycodone Screen, Ur Negative Negative Fentanyl, Ur Negative Negative Buprenorphine screen, urine Collection Time: 01/12/25 6:50 PM Result Value Ref Range Buprenorphine Screen Urine Negative Negative Phencyclidine, urine Collection Time: 01/12/25 6:50 PM Result Value Ref Range PCP Scrn, Ur Negative Negative Methadone, urine Collection Time: 01/12/25 6:50 PM Result Value Ref Range Methadone Screen, Urine Negative Negative Medications: Current Medications[1] Diagnosis/Assessment/Plan: Schizoaffective disorder PTSD Suicidal ideations Cocaine use Ms Ahumada reports to continue feeling depressed with suicidal ideations. Patient reports poor sleep every couple of days . Reports recently restarted on quetiapine to control my moods but is reluctant to take it I overdosed and on that, they had to bring me back . Not sure if she wants to try anything else at this time. 1) Continue current psychotropic medications. 2) Collaborate with team for inpatient psychiatric hospitalization for patient safety, mood stabilization and medication management. Yudy Peters NP [1] Current Facility-Administered Medications Medication Dose Route Frequency Provider Last Rate Last Admin cholecalciferol (VITAMIN D-3) tablet 1,000 Units 1,000 Units oral Daily Nick Fry MD 1,000 Units at 01/15/25 09 cloNIDine (CATAPRES) tablet 0.2 mg 0.2 mg oral BID Nick Fry MD 0.2 mg at 01/15/25 0914 hydroCHLOROthiazide (HYDRODIURIL) tablet 12.5 mg 12.5 mg oral Daily Nick Fry MD 12.5 mg at 01/15/25 0914 methocarbamoL (ROBAXIN) tablet 1,000 mg 1,000 mg oral TID To Chavez MD 1,000 mg at 01/15/25 0606 naproxen (NAPROSYN) tablet 500 mg 500 mg oral BID with meals Nick Fry MD QUEtiapine fumarate ER (SEROquel XR) 24 hr tablet 50 mg 50 mg oral Nightly Nick Fry MD venlafaxine XR (EFFEXOR-XR) 24 hr capsule 75 mg 75 mg oral Daily with breakfast Nick Fry MD 75 mg at 01/15/25 0914 Current Outpatient Medications Medication Sig Dispense Refill cholecalciferol (VITAMIN D-3) 25 mcg (1,000 unit) tablet Take 1 tablet (1,000 Units total) by mouthdaily. cloNIDine (CATAPRES) 0.2 mg tablet Take 1 tablet (0.2 mg total) by mouth 2 (two) times a day. hydroCHLOROthiazide (MICROZIDE) 12.5 mg capsule Take 1 capsule (12.5 mg total) by mouth 1 (one) time each day in the morning. methocarbamoL (ROBAXIN) 500 mg tablet Take 1 tablet (500 mg total) by mouth 2 (two) times a day for10 days. 20 tablet 0 omeprazole (PriLOSEC) [address] capsule Take by mouth. Take 1 Capsule by mouth daily. - Oral QUEtiapine fumarate ER (SEROquel XR) 50 mg 24 hr tablet Take 1 tablet (50 mg total) by mouth at bedtime. tobramycin-dexAMETHasone (TOBRADEX) ophthalmic suspension Administer 1 drop into both eyes every 4 (four) hours while awake. venlafaxine XR (EFFEXOR-XR) 75 mg 24 hr capsule Take 1 capsule (75 mg total) by mouth 1 (one) time each day. Vraylar 3 mg capsule Take 1 capsule (3 mg total) by mouth 1 (one) time each day. acetaminophen (TYLENOL) 500 mg tablet Take 2 tablets (1,000 mg total) by mouth every 6 (six) hours if needed for mild pain for up to 10 days. 30 tablet 0 ARIPiprazole (ABILIFY) 10 mg tablet Take 1 Tablet by mouth daily. (Patient not taking: Reported on 07/11/2024) ARIPiprazole (ABILIFY) 20 mg tablet Take 1 tablet (20 mg total) by mouth 1 (one) time each day. (Patient not taking: Reported on 01/14/2025) bisacodyL (DULCOLAX) 5 mg EC tablet Take 2 tablets by mouth right before beginning bowel prep. See instructions provided by the office (Patient not taking: Reported on 08/19/2024) 2 tablet 0 bisacodyL (DULCOLAX) 5 mg EC tablet Take 2 tablets by mouth right before beginning bowel prep. See instructions provided by the office (Patient not taking: Reported on 08/19/2024) 2 tablet 0 celecoxib (CeleBREX) 200 mg capsule Take 1 capsule (200 mg total) by mouth 2 (two) times a day. (Patient not taking: Reported on 01/12/2025) cloNIDine (CATAPRES) 0.1 mg tablet Take 1 Tablet by mouth 2 times daily. - Oral (Patient not taking: Reported on 01/12/2025) cloNIDine (CATAPRES) 0.1 mg tablet Take 1.5 tablets (0.15 mg total) by mouth 1 (one) time each day.(Patient not taking: Reported on 11/16/2024) clotrimazole (LOTRIMIN) 1 % cream Apply 1 Application topically 2 (two) times a day. (Patient not taking: Reported on 01/14/2025) divalproex (DEPAKOTE) [address] tablet Take 1 tablet (250 mg total) by mouth at bedtime. (Patient not taking: Reported on 11/16/2024) folic acid (FOLVITE) 400 mcg tablet Take 1 Tablet by mouth daily. (Patient not taking: Reported on 08/19/2024) hydroCHLOROthiazide 12.5 mg tablet Take 1 tablet (12.5 mg total) by mouth 1 (one) time each day. hydrOXYzine HCL (ATARAX) 10 mg tablet Take 1 tablet (10 mg total) by mouth 3 times daily as needed.(Patient not taking: Reported on 08/19/2024) hydrOXYzine HCL (ATARAX) 25 mg tablet Take 1 tablet (25 mg total) by mouth every 6 (six) hours if needed for anxiety. (Patient not taking: Reported on 01/14/2025) ibuprofen (ADVIL,MOTRIN) 600 mg tablet Take 1 tablet (600 mg total) by mouth every 6 (six) hours ifneeded for moderate pain. (Patient not taking: Reported on 01/12/2025) ketoconazole (NIZORAL) 2 % cream Apply 1 Application topically 1 (one) time each day. To chest (Patient not taking: Reported on 01/12/2025) naproxen (NAPROSYN) 500 mg tablet Take 1 tablet (500 mg total) by mouth 2 (two) times a day with meals for 15 days. (Patient not taking: Reported on 01/12/2025) 30 tablet 0 olmesartan (BENICAR) 5 mg tablet Take 1 tablet (5 mg total) by mouth daily. (Patient not taking: Reported on 11/16/2024) pyrithione zinc (HEAD AND SHOULDERS) 1 % shampoo Apply 1 Application topically once daily as neededfor dandruff or itching. (Patient not taking: Reported on 01/12/2025) tobramycin-dexAMETHasone (TOBRADEX) ophthalmic ointment Apply 1 Application to both eyes 4 (four) times a day. venlafaxine XR (EFFEXOR-XR) 37.5 mg 24 hr capsule Take 1 capsule (37.5 mg total) by mouth 1 (one) time each day. (Patient not taking: Reported on 08/19/2024) venlafaxine XR (EFFEXOR-XR) 75 mg 24 hr capsule Take 1 capsule (75 mg total) by mouth 1 (one) time each day. Vitamin D3 25 mcg (1,000 unit) tablet Take 1 tablet (1,000 Units total) by mouth 1 (one) time each day. (Patient not taking: Reported on 01/12/2025) * Ana Aguero RN - 01/12/2025 3:44 PM EST Sect 12 inpt bed search by N-seen [employer], SOAP note sent. SI with paln to OD on heroin. Med noncompliance ( effexor) not attending to ADL's. Increase in crack use. Self harm via cutting and burning. Pt c/o numbness right 3rd, 4th and 5th fingers since 2 wks ago when she got her flu shot. Recent EDvisit. Pt states has been cutting herself and burning herself since July. No open wounds noted. States compliant with meds except seroquel, doesn't want to take that, only wants to take the effexor. See chart for ED visit 01/10/25 for right hand parasthesia-ct brain, MRI c-spine done * Ana Aguero RN - 01/12/2025 3:25 PM EST Arrival via EMS on sect 12, bed search for si Ana Aguero RN 01/12/25 1525 * Christian Kaur MD - 01/12/2025 3:14 PM EST HPI Chief Complaint Patient presents with Suicidal HPI Patient is a 54-year-old female with history of schizophrenia, depression by EMS for suicidal ideation with plan to take all of her money from the bank and overdose on heroin. Patient was recently seen 2 days ago here in the ER for 2 weeks of right upper extremity numbness and paresthesias and headache. During that visit an MRI of the cervical spine was completed which showed no acute findings. Today patient states her symptoms have been unchanged and not with worsening with a pins and needle sensation to digits 3 4 and 5 for the last 2 weeks without any head neck or back pain today. She was unable to see her therapist or her PCP today which prompted her to call crisis line. She told them she had thoughts of hurting herself with a plan to overdose on heroin due to all of her medical problems. This prompted her to come to the ER for an evaluation due to suicidal ideation. HI, auditory visual hallucinations. Denies any other drug or alcohol use today. She took a muscle relaxer and Motrin has prescribed but did not take any additional medications to hurt herself. Denies fever, chills, chest pain, shortness of breath, abdominal pain, nausea, vomiting, diarrhea. Girard Coma Scale Score: 15 Patient History Medical History[1] Surgical History[2] Family History[3] Social History Tobacco Use Smoking status: Never Smokeless tobacco: Never Substance Use Topics Alcohol use: Not Currently Drug use: Yes Types: Crack cocaine Comment: states smokes crack Review of Systems Review of Systems Physical Exam ED Triage Vitals 01/12/25 1541 Temp Heart Rate Resp BP 36.9 ??C (98.5 ??F) 74 20 (!) 162/98 SpO2 Temp Source Heart Rate Source Patient Position 97 % Oral -- -- BP Location FiO2 (%) -- -- Physical Exam Vitals reviewed Pulse ox interpreted by me: Normal on room air - General: Adult, awake & alert, resting comfortably, no acute distress - HEENT: grossly NC/AT, PERRLA, EOMI, OP clear without exudates or erythema, MMM - Neck: Moving normally. No obvious deformities. No tenderness - Pulm: Good inspiratory effort. CTAB. Normal work of breathing on Room Air - CV: Regular rate, regular rhythm. No murmurs/rubs appreciated. - Chest wall: No chest wall bruising or lesions. - Abd/GI: Soft, ND. NTTP, no rebound or guarding. - Back/Flanks: No skin findings. No tenderness. - MSK: Radial and DP pulses 2+ bilaterally. No lower extremity edema. - Neuro: Alert. - Derm: Warm and dry. No rashes noted. - Psych: Calm, cooperative, appropriate, positive SI, negative HI, auditory or visual hallucinations. Additional findings:_ Decreased sensation to digits 3 4 and 5 of the right upper extremity, mildly decreased excelsior machine feeder strength to the right upper extremity compared to the left pt confirms has been unchanged for 2 weeks. Grossly oriented alert and oriented x 4, clear fluent speech, no facial droop. All other sensation is intact. Patient is able to ambulate with steady gait. No midline cervical, thoracic or lumbar vertebral tenderness to palpation. ED Course & MDM Clinical Impressions as of 01/13/25 0834 Suicidal ideation Cocaine use Medical Decision Making Differential diagnosis includes but not limited to SI, HI, acute psychosis, depression, polysubstance abuse EKG sinus rhythm with sinus arrhythmia 62 bpm, intervals within normal limits, normal axis, overallsimilar EKG when compared to prior, no sign of acute ischemia. Labs reviewed notable for leukocytosis, no anemia, calcium 8.2, no other significant electrolyte derangements, salicylate level negative, Tylenol level 5.8 nonspecific as patient denies taking any Tylenol today, ethanol negative, urine drug screen positive for cocaine. Pt has no fever, chill, tachycardia and is afebrile. No cough urinary symptoms, SOB, chest pain or abdominal pain. There is no suspected infectious source. I suspect the elevated luekocytosis is likely reactive from cocaine use or from her current steroid use that was prescribed to her on 01/10/25.I do not believe there is an indication for antibiotics. Patient has sensation changes in a dermatomal distribution to the right upper extremity with a negative cervical MRI on 01/10/2025 and no reported worsening symptoms. I have lower suspicion for acutespinal cord compression, epidural abscess, central cord syndrome, ischemic or hemorrhagic stroke. No further workup was pursued today. Pt was medically cleared, awaiting evaluation by crisis team/behavioral health. Patient signed out to Dr. Chavez Procedures Christian Kaur MD 01/12/25 1613 Christian Kaur MD 01/12/25 8362 [1] Past Medical History: Diagnosis Date GERD (gastroesophageal reflux disease) Hypertension Irritable bowel disease 2022 per EMR Pituitary adenoma ([facility] V24, [facility] V28) 2002 per EMR PTSD (post-traumatic stress disorder) 08/20/2024 Schizoaffective disorder, depressive type ([facility] V24, [facility] V28) 08/19/2024 Stimulant use disorder 08/20/2024 cocaine use [2] History reviewed. No pertinent surgical history. [3] No family history on file. Christian Kaur MD 01/13/25 0835 * To Chavez MD - 01/12/2025 3:14 PM EST Signed out to me at 9:27 PM. Patient is pending bed search for suicidal ideation. No events on my shift. Patient will be signed out to the a.m. provider To Chavez MD 01/12/257 To Chavez MD 01/13/25 0430 To Chavez MD 01/13/25 0636 * Yanna Rubio MD - 01/12/2025 3:14 PM EST This patient's care was signed out to me by the offgoing provider. Please see her/his note for further details regarding initial presentation, history of present illness, physical exam, and medical decision making. At time of signout, the following was pending: ED Course as of 01/15/25 0650 Sat Jan 13, 2025 0941 Per Crisis (Isidro), involuntary level of care warranted, bed search, patient HDS and NAD. [OR] Shannen Jan 14, 2025 021 Signed out pending inpatient psychiatric placement for suicidal ideation [EK] 0528 No acute needs during my shift. Patient's care was handed over to the oncoming provider. [EK] 0843 Patient pending Bed Search for Suicidal idea. NAD and HDS. [OR] 1949 Received patient in sign-out from Dr. Fry pending bed search for SI [RG] Mon Jan 15, 2025 0200 Patient signed out to Dr. Rubio pending bed search [RG] 0649 No acute needs during my shift. Patient's care was handed over to the oncoming provider. [EK] ED Course User Index [EK] Yanna Rubio MD [OR] Nick Fry MD [RG] Saadia Cummings MD Clinical Impressions as of 01/15/25 0650 Suicidal ideation Cocaine use No orders to display Labs Reviewed COMPREHENSIVE METABOLIC PANEL - Abnormal Result Value Sodium 140 Potassium 3.8 Chloride 102 CO2 29 Anion Gap 9 Glucose 111 (*) BUN 16 Creatinine 0.99 eGFR 67 BUN/Creatinine Ratio 16.2 Calcium 8.2 (*) AST (SGOT) 28 ALT (SGPT) 22 Alkaline Phosphatase 120 Total Protein 6.6 Albumin 4.2 Total Bilirubin 0.2 ACETAMINOPHEN LEVEL - Abnormal Acetaminophen Level 5.8 (*) DRUG ABUSE SCREEN 8A PANEL, URINE [...] *ALTERNATE METHOD CONFIRMATION DONE UPON REQUEST ONLY* CBC WITH AUTO DIFFERENTIAL - Abnormal WBC 14.7 (*) RBC 4.30 Hemoglobin 13.1 Hematocrit 40.4 MCV 93.1 MCH 30.2 MCHC 32.4 RDW 13.4 Platelets 262 MPV 10.6 NRBC 0.0 NRBC Absolute 0.00 Neutrophils Relative 88.5 Lymphocytes Relative 8.6 Monocytes Relative 1.6 Eosinophils Relative 0.0 Basophils Relative 0.1 Immature Granulocytes Relative 1.2 Neutrophils Absolute 12.99 (*) Lymphocytes Absolute 1.27 Monocytes Absolute 0.24 Eosinophils Absolute 0.00 Basophils Absolute 0.02 Immature Granulocytes Absolute 0.17 (*) ETHANOL - Normal Ethanol Level <3 SALICYLATE LEVEL - Normal Salicylate Level <3.0 BUPRENORPHINE SCREEN, URINE - Normal Buprenorphine Screen [...] Procedure Abnormality Status --------- ------ CBC auto differential[[id number]] Abnormal Final result Please view results for these tests on the individual orders. Clinical Impression(s): Final diagnoses: [R45.851] Suicidal ideation [F14.90] Cocaine use Data Unavailable Previous Medications ACETAMINOPHEN (TYLENOL) 500 MG TABLET Take 2 tablets (1,000 mg total) by mouth every 6 (six) hours if needed for mild pain for up to 10 days. ARIPIPRAZOLE (ABILIFY) 10 MG TABLET Take 1 Tablet by mouth daily. ARIPIPRAZOLE (ABILIFY) 20 MG TABLET Take 1 tablet (20 mg total) by mouth 1 (one) time each day. BISACODYL (DULCOLAX) 5 MG EC TABLET Take 2 tablets by mouth right before beginning bowel prep. See instructions provided by the office BISACODYL (DULCOLAX) 5 MG EC TABLET Take 2 tablets by mouth right before beginning bowel prep. See instructions provided by the office CELECOXIB (CELEBREX) 200 MG CAPSULE Take 1 capsule (200 mg total) by mouth 2 (two) times a day. CHOLECALCIFEROL (VITAMIN D-3) 25 MCG (1,000 UNIT) TABLET Take 1 tablet (1,000 Units total) by mouthdaily. CLONIDINE (CATAPRES) 0.1 MG TABLET Take 1 Tablet by mouth 2 times daily. - Oral CLONIDINE (CATAPRES) 0.1 MG TABLET Take 1.5 tablets (0.15 mg total) by mouth 1 (one) time each day. CLONIDINE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 Last Ordered Date First Orde red Date SUICIDE PRECAUTIONS 1 01/12/2025 Privilege Level Count Last Ordered Date First O rdered Date 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
--- NOTE | 2025-01-15 18:41 | PC.NURSE ---
Patient arrived to unit 1807 accompanied by EMS and security. Patient engaging and cooperative. Reports on going health problems, and poor sleep as contributing factors to increased depression. Denies SI at this time, states she is able to maintain safety on unit, and will notify staff if symptoms exacerbate or intensify. Skin check completed, no open areas noted. Nursing admission to be completed. Placed on 15 minute safety checks.
[2025-01-15 18:47] VITALS: BMI 34.2
[2025-01-15 18:48] VITALS: BP 147/92; PULSE 98; RESP 18; TEMP 36.7; O2SAT 98
--- OUTSIDE RECORDS SUMMARY | 2025-01-15 18:53 | XMS_ITS | Clinical Summary ---
Author Organization [facility] Address [address] [place] [address] Care Team Providers Care Tax Examiner Name Role Phone Unavailable Primary Care Provider Unavailabl e Social History Tobacco Use Types Packs/Day Years Used Date Smoking Tobacco: Never Assessed Comments Unknown Sex and Gender Information Value Date Recorded Sex Assigned at Not on file Legal Sex Female 9:22 PM EDT Gender Identity Not on file Sexual Orientation Not on file Plan of Treatment Health Maintenance Due Date Last Done Comments CT Colonography 1968 Colonoscopy 1968 Colorectal Cancer Screening 1968 Depression Screening 1968 FIT DNA/Cologuard 1968 FIT 1968 FOBT 1968 Lipid Panel 1968 SDOH Screening 1968 Sigmoidoscopy 1968 Disability Screening 1968 Alcohol/Substance Use Screening 1980 Tobacco Screening 1980 Hepatitis C Screening 1986 Pap Smear 1989 Cervical Cancer Screening 1998 HPV/Cotest 1998 Mammogram 2008 Pneumococcal Vaccine: 50+ Years (2 of 2 - PCV) 2018 02/14/2014 COVID-19 Vaccine ( season) 2024 11/08/2023, 02/05/2023, 12/04/2021, Additional history exists DTaP/Tdap/Td Vaccines (3 - Td or Tdap) 03/09/2027 03/09/2017, 06/20/2010 RSV Patients and Patients Aged 60 years or older (1 - 1-dose 75+ series) 05/24/2043 Hepatitis A Vaccines Aged Out 09/22/2011 No long er eligible based on patient's age to complete this topic Zoster Vaccines Completed 06/27/2020, 03/01/2020 HIV Screening Completed 03/02/2024, 08/16, 07/27/2023, Additional history exists Hepatitis B Vaccines Completed 06/27/2024, 03/02/2024, 09/22/2011 Influenza Vaccine Completed 12/08/2024, , 12/16/2022, Additional history exists HIB Vaccines Aged Out No longer eligi ble based on patient's age to complete this topic HPV Vaccines Aged Out No longer eligi ble based on patient's age to complete this topic IPV Vaccines Aged Out No longer eligi ble based on patient's age to complete this topic Meningococcal B Vaccine Aged Out No l onger eligible based on patient's age to complete this topic Meningococcal Vaccine Aged Out No scottie sonali eligible based on patient's age to complete this topic RSV under 20 months Aged Out No longe r eligible based on patient's age to complete this topic Rotavirus Vaccines Aged Out No longer eligible based on patient's age to complete this topic
--- OUTSIDE RECORDS SUMMARY | 2025-01-15 18:53 | XMS_ITS | Clinical Summary ---
Author Organization [facility] Address [address] [place] [address] Phone Care Team Providers Care Trial Consultant Name Role Phone Physician, No Pcp Primary Care Provider Unavaila ble Allergies Active Allergy Reactions Criticality Noted Date Comments Fluphenazine Rash High 08/12/2020 Haloperidol 03/13/2022 [place] Rash 12/20/2013 [place] Citrate 03/13/2022 Paliperidone Unknown High 08/12/2020 Penicillins Rash High 03/13/2022 Medications ARIPiprazole (ABILIFY) 10 mg tablet Take 1 Tablet by mouth daily. Active folic acid (FOLVITE) 400 mcg tablet Take 1 Tablet by mouth daily. Active hydroCHLOROthi azide 12.5 mg tablet Take 1 tablet (12.5 mg total) by mouth 1 (one) time each day. Active cloNIDine (CATAPRES) 0.1 mg tablet Take 1 Tablet by mouth 2 times daily. - Oral Active omeprazole (PriLOSEC) [address] capsule Take by mouth. Take 1 Capsule by mouth daily. - Oral Active bisacodyL (DULCOLAX) 5 mg EC tablet Take 2 tablets by mouth right before beginning bowel prep. See instructions provided by the office 2 tablet Active Additional Information Patient not taking.Reported on 08/19/2024 bisacodyL (DULCOLAX) 5 mg EC tablet Take 2 tablets by mouth right before beginning bowel prep. See instructions provided by the office 2 tablet Active Additional Information Patient not taking.Reported on 08/19/2024 divalproex (DEPAKOTE) [address] tablet Take 1 tablet (250 mg total) by mouth at bedtime. 5 Active olmesartan (BENICAR) 5 mg tablet Take 1 tablet (5 mg total) by mouth daily. 5 Active pyrithione zinc (HEAD AND SHOULDERS) 1 % shampoo Apply 1 Application topically once daily as needed for dandruff or itching. 5 Active venlafaxine XR (EFFEXOR-XR) 37.5 mg 24 hr capsule Take 1 capsule (37.5 mg total) by mouth 1 (one) time each day. 5 Active hydrOXYzine HCL (ATARAX) 10 mg tablet Take 1 tablet (10 mg total) by mouth 3 times daily as needed. 5 Active Vitamin D3 25 mcg (1,000 unit) tablet Take 1 tablet (1,000 Units total) by mouth 1 (one) time each day. 5 Active cloNIDine (CATAPRES) 0.2 mg tablet Take 1 tablet (0.2 mg total) by mouth 2 (two) times a day. 5 Active venlafaxine XR (EFFEXOR-XR) 75 mg 24 hr capsule Take 1 capsule (75 mg total) by mouth 1 (one) time each day. 5 Active cloNIDine (CATAPRES) 0.1 mg tablet Take 1.5 tablets (0.15 mg total) by mouth 1 (one) time each day. Active ibuprofen (ADVIL,MOTRIN) 600 mg tablet Take 1 tablet (600 mg total) by mouth every 6 (six) hours if needed for moderate pain. 5 Active ketoconazole (NIZORAL) 2 % cream Apply 1 Application topically 1 (one) time each day. To chest 5 Active tobramycin-dex AMETHasone (TOBRADEX) ophthalmic ointment Apply 1 Application to both eyes 4 (four) times a day. Active celecoxib (CeleBREX) 200 mg capsule Take 1 capsule (200 mg total) by mouth 2 (two) times a day. Active acetaminophen (TYLENOL) 500 mg tablet Take 2 tablets (1,000 mg total) by mouth every 6 (six) hours if needed for mild pain for up to 10 days. 30 tablet 5 01/21/20 25 Active naproxen (NAPROSYN) 500 mg tablet Take 1 tablet (500 mg total) by mouth 2 (two) times a day with meals for 15 days. 30 tablet 5 01/26/20 25 Active Additional Information Patient not taking.Reported on 01/12/2025 methocarbamoL (ROBAXIN) 500 mg tablet Take 1 tablet (500 mg total) by mouth 2 (two) times a day for 10 days. 20 tablet 5 01/21/20 25 Active Vraylar 3 mg capsule Take 1 capsule (3 mg total) by mouth 1 (one) time each day. 5 Active clotrimazole (LOTRIMIN) 1 % cream Apply 1 Application topically 2 (two) times a day. 5 Active QUEtiapine fumarate ER (SEROquel XR) 50 mg 24 hr tablet Take 1 tablet (50 mg total) by mouth at bedtime. 5 04/10/19 Active ARIPiprazole (ABILIFY) 20 mg tablet Take 1 tablet (20 mg total) by mouth 1 (one) time each day. Active cholecalcifero l (VITAMIN D-3) 25 mcg (1,000 unit) tablet Take 1 tablet (1,000 Units total) by mouth daily. Active hydroCHLOROthi azide (MICROZIDE) 12.5 mg capsule Take 1 capsule (12.5 mg total) by mouth 1 (one) time each day in the morning. Active hydrOXYzine HCL (ATARAX) 25 mg tablet Take 1 tablet (25 mg total) by mouth every 6 (six) hours if needed for anxiety. Active tobramycin-dex AMETHasone (TOBRADEX) ophthalmic suspension Administer 1 drop into both eyes every 4 (four) hours while awake. Active venlafaxine XR (EFFEXOR-XR) 75 mg 24 hr capsule Take 1 capsule (75 mg total) by mouth 1 (one) time each day. 5 04/10/19 26 Active methylPREDNISo lone (MedroL) 32 mg tablet Take 1 tablet (32 mg total) by mouth 1 (one) time each day for 4 days. Okay to change to other formulations as long as the milligram amounts are equivalent 4 tablet 5 01/15/20 Active Problems Problem Noted Date Diagnosed Date History of alcohol abuse 01/11/2025 Allergic rhinitis 01/11/2025 Class 1 obesity 01/11/2025 Obesity 01/11/2025 Genital herpes 01/11/2025 GERD (gastroesophageal reflux disease) Overview (01/11/2025): EGD 01/21/11 REVEALED GERD WITHOUT DAMAGE VIA DR. HOUSE. Repeat EGD 10/29/14 completely normal. History of ETOH abuse 01/11/2025 IBS (irritable bowel syndrome) 01/11/2025 Overview (01/11/2025): COLONOSCOPY 01/21/11 REVEALED INT/EXT HEMORRHOIDS. GI F/U DR. HOUSE. COLONOSCOPY 12/12/[address] HOUSE. MARU (obstructive sleep apnea) 01/11/2025 Overview (01/11/2025): SLEEP STUDY 06/04/11, CPAP TIT. 10/15/11 Schizoaffective disorder, un specified (CMS/HCC V24, CMS/HCC V28) 01/11/2025 Overview (01/11/2025): DX: 1991, PSYCH F/U IRMA PEACOCK 05/10/20 Eval at [facility] for AH/VH, pending psych placement. 08/06/20 D/c from [facility] for PTSD, Schizophrenia. D/c on prolixin 25 mg IM every 2-4 weeks and prolixin 10 mg QD PRN agitation. 10/25/20-10/30/20 Admitted to [facility] for schizoaffective d/o bipolar type. She declined antipsychotics. D/c on doxycycline and metronidazole for GI infection. 11/27/20 ED for SI. Admitted to [facility] 01/01/21 [facility] Admitted for schizoaffective d/o. D/c 02/03/21 on Abilify 20 mg qAM and clozapine 100 mg qHS with VNA and trazodone 100 mg QHS PRN. No psych f/u scheduled. Cocaine use disorder ([facility] V24, [facility] V28) 11/26/2022 Decreased renal function 03/23/2022 Prediabetes 03/23/2022 Folate deficiency 05/14/2021 Chronic cough 05/08/2021 Hemorrhoids 05/08/2021 Overview (01/11/2025): 10/29/20 Eval by [facility] colorectal surgery-- findings of hemorrhoids. No s/sx HPV or squamous cell carcinoma. Recommends surgical excision. Brittle nails 05/08/2021 Trachyonychia 05/08/2021 Closed fracture of right toe 11/13/2020 Overview (01/11/2025): 10/24/2024: Xray of rt foot: IMPRESSION: Suspected minimally displaced fracture of the distal tuft of the first digit. 11/09/20 [facility] ED for R toe fracture. Advised post-op shoe and f/u with PCP in 4-5 weeks. PTSD (post-traumatic stress disorder) 06/18/2020 Right shoulder pain 06/17/2020 Overview (01/11/2025): 03/08/[address] [facility]. S/p fall. Near full-thickness bursal sided tear of the distal supraspinatus in conjunction with subacromial impingement, acromial clavicular arthrosis and biceps tendinopathy. Offered surgery, pt does not wish to undergo at this time. Rec'd steroid injection. Advised NSAIDs and HEP. F/u PRN. Essential hypertension 04/14/2020 Chronic bilateral low back pain without sciatica 03/11/2020 Overview (01/11/2025): Lumbar spine MRI 02/04/20 shows at L5-S1 there is a broad-based right paracentral disc protrusion associated with an annular fissure which results in posterior deflection of the transversing right S1 nerve root within the right subarticular zone . Menopausal symptoms 03/11/2020 Cervicalgia 03/11/2020 Overview (01/11/2025): Cervical spine MRI 01/27/20 shows mild cervical spondylosis. No severe central canal stenosis. No foraminal stenosis within the cervical spine. Possible anterior sellar arachnoid cyst resulting in posterior displacement of the pituitary gland and infundibulum. Neck pain 03/11/2020 Paranoid schizophrenia ([facility] V24, [facility] V28 ) 08/17/2019 Moderate mixed hyperlipidemia not requiring stat in therapy 10/19/2014 Anxiety 02/14/2014 Vitamin D deficiency 04/22/2011 Overview (01/11/2025): =13. Bilateral carpal tunnel syndrome 02/03/2010 Overview (01/11/2025): F/U [facility]. Endometriosis 02/15/2009 Endometriosis 02/15/2009 Overview (01/11/2025): CHRONIC PELVIC PAIN/DYSMENORRHEA. ON FOAM FABRICATOR F/U S/P PARTIAL HYSTERECTOMY due DUB & dysmenorrhea 06/[address] KUMARI. Pituitary adenoma ([facility] V24, [facility] V28) 02/2002 Overview (01/11/2025): Saw [facility] on 05-26-18 - order labs - RTC in 3-4 months. S/P SURGERY 12/25/[address] MORGAN. ENDO F/U AT [facility] (DR. GARCIA). Stable MR brain 05/03/14. Anxiety and depression 02/16/1996 Overview (01/11/2025): H/O PSYCH ADMIT 10/29/10 AT [facility] AND 03/02/12 IN [facility]. Admit [facility] @ [facility] 03/11/15-03/18/15 for hallucinations. Psychiatrist Irma Peacock. 06/09/18 - Aggressive at [facility], refuse treatment. Patient was arrested and brought to intermediate. History of cocaine abuse ([facility] V24, [facility] V 28) 02/15/1991 Overview (01/11/2025): STARTED 1989 Encounters Date Type Department Care Team Description 01/12/2025 3:18 PM EST - 01/15/2025 5:25 PM EST Emergency [facility] Emergency [address] [place] [id number] Christian Kaur MD Notash, Mark, MD Reid, MD Harmeet Cruz, MD Joanne Mckeon Erika, MD Gordon, Ruth, MD Suicidal ideation (Primary Dx); Cocaine use Discharge Disposition: Psychiatric Hospital 01/10/2025 4:38 PM EST - 01/10/2025 11:43 PM EST [facility] Emergency [address] [place] [address] To Chavez MD Paresthesias in right hand (Primary Dx); Nonintractable headache, unspecified chronicity pattern, unspecified headache type Discharge Disposition: Home or Self Care 11/16/2024 9:07 AM EDT - 11/17/2024 9:20 AM EDT [facility] Emergency [address] [place] [phone] Kameron Singh MD Lawrenz, MD Marysol Shabazz Ashley, MD Suicidal ideation (Primary Dx); Schizophrenia, unspecified type ([facility] V24, [facility] V28) Discharge Disposition: Psychiatric Hospital from Last 3 Months Medical History Medical History Date Comments Hypertension Schizoaffective disorder, de pressive type ([facility] V24, [facility] V28) 08/19/2024 Stimulant use disorder 08/20/2024 cocaine u se PTSD (post-traumatic stress disorder) 08/20/2024 GERD (gastroesophageal reflux disease) Irritable bowel disease 2022 per EMR Pituitary adenoma ([facility] V24, [facility] V28) 200 3 per EMR Social History Tobacco Use Types Packs/Day Years Used Date Smoking Tobacco: Never Smokeless Tobacco: Never Tobacco Cessation:Counseling Given: Not Answered Alcohol Use Standard Drinks/Week Comments Not Currently 0 (1 standard drink = 0.6 oz pur e alcohol) Comments Unknown Sex and Gender Information Value Date Recorded Sex Assigned at Female 05/08/2024 9:03 AM EDT Legal Sex Female 9:56 PM EST Gender Identity Female 05/08/2024 9:03 AM EDT Sexual Orientation Straight 05/08/2024 9: 31 AM EDT Obstetrics History Last Filed Vital Signs Vital Sign Reading [...] Mass Index 32.37 01/12/2025 3:41 PM EST Plan of Treatment Health Maintenance Due Date Last Done Comments Breast Cancer Screening 1968 Colorectal Cancer Screening: Colonoscopy 1968 Cervical Cancer Screening: Pap Smear 1989 Pneumococcal Vaccine: 50+ Years (2 of 2 - PCV) 2018 02/14/2014 HIV Screening 01/17/2022 Social Influencers of Health Screening 01/17/2022 Depression Screening 02/16/2024 COVID-19 Vaccine ( season) 2024 11/08/2023, 02/05/2023, 12/04/2021, Additional history exists Hypertension/CHF/CAD Annual BMP Blood Test 01/12/2026 01/12/2025, 11/16/2024, 10/05/2024, Additional history exists Cholesterol Screening (Lipid Panel) 06/27/2029 06/27/2024, 03/20/2022, 08/26/2018 DTaP,Tdap,and Td Vaccines (4 - Td or Tdap) 11/22/2033 11/23/2023, 03/09/2017, 06/21/2010 RSV Immunization Adult Patients (1 - 1-dose 75+ series) 05/24/2043 Hepatitis A Vaccines Aged Out 09/22/2011 No long er eligible based on patient's age to complete this topic Zoster Vaccines Completed 06/27/2020, 03/01/2020 Hepatitis C Screening Completed 03/02/2024 Hepatitis B Vaccines Completed 06/27/2024, 03/02/2024, 09/22/2011 [...] on patient's age to complete this topic MMR Vaccines Aged Out No longer eligi ble based on patient's age to complete this topic Meningococcal ACWY Vaccine Aged Out N o longer eligible based on patient's age to complete this topic Meningococcal B Vaccine Aged Out No l onger eligible based on patient's age to complete this topic RSV Immunization Patients Under 20 months Aged Out No longer eligible based on patient's age to complete this topic Varicella Vaccines Aged Out No longer eligible based on patient's age to complete this topic Procedures Procedure Name Priority Date/Time Associated Diagnosis Comments METHADONE SCREEN, URINE STAT 01/12/2025 6:50 PM EST PHENCYCLIDINE, URINE STAT 01/12/2025 6:50 PM EST BUPRENORPHINE SCREEN, URINE STAT 01/12/2025 6:50 PM EST DRUG ABUSE SCREEN 8A PANEL, URINE STAT 01/12/2025 6:50 PM EST ECG 12-LEAD STAT 01/12/2025 5:33 PM EST CBC WITH AUTO DIFFERENTIAL STAT 01/12/2025 4:20 PM EST SALICYLATE LEVEL STAT 01/12/2025 4:20 PM EST ACETAMINOPHEN LEVEL STAT 01/12/2025 4 :20 PM EST ETHANOL STAT 01/12/2025 4:20 PM EST COMPREHENSIVE METABOLIC PANEL STAT 01/12/2025 4:20 PM EST CBC AND DIFFERENTIAL STAT 01/12/2025 4:[address] HEAD WO CONTRAST STAT 01/10/2025 7 :31 PM EST MR CERVICAL SPINE WO CONTRAST STAT 01/10/2025 7:30 PM EST METHADONE SCREEN, URINE STAT 11/16/2024 9:48 AM EDT PHENCYCLIDINE, URINE STAT 11/16/2024 9:48 AM EDT BUPRENORPHINE SCREEN, URINE STAT 11/16/2024 9:48 AM EDT DRUG ABUSE SCREEN 8A PANEL, URINE STAT 11/16/2024 9:48 AM EDT CBC WITH AUTO DIFFERENTIAL STAT 11/16/2024 9:47 AM EDT SALICYLATE LEVEL STAT 11/16/2024 9:47 AM EDT ACETAMINOPHEN LEVEL STAT 11/16/2024 9 :47 AM EDT ETHANOL STAT 11/16/2024 9:47 AM EDT COMPREHENSIVE METABOLIC PANEL STAT 11/16/2024 9:47 AM EDT CBC AND DIFFERENTIAL STAT 11/16/2024 9:47 AM EDT from Last 3 Months Results * (ABNORMAL) Drug abuse screen 8a panel, urine (01/12/2025 6:50 PM EST) Only the most recent of2 resultswithin the time period is included. Amphetamine Screen, Ur Negative Negative 01/12/2025 7:34 PM EST [facility] Comment:Certain OTC medicati ons containing ephedrine, phenylephrine, pseudoephedrine and phenylpropanolamine can cause false positive results. Barbiturate Screen, Ur Negative Negative 01/12/2025 7:34 PM EST [facility] Benzodiazepine Screen, Ur Negative Negative 01/12/2025 7:34 PM EST [facility] Cocaine Screen, Ur Positive(A ) Negative 01/12/2025 7:34 PM EST [facility] Opiate Screen, Ur Negative Negative 025 7:34 PM [facility] Cannabinoid (THC) Screen, Ur Negative Negative 01/12/2025 7:34 PM EST [facility] Comment:Specimens from patie nts taking pantoprazole sodium (Protonix) have been shown to produce false positive results. Oxycodone Screen, Ur Negative Negative 12/17 7:34 PM EST [facility] Fentanyl, Ur Negative Negative 01/12/2025 7:34 PM [facility] Urine Urine specimen obtained by clean catch procedure / Unknown Non-blood Collection / Unknown 01/12/2025 6:50 PM EST 01/12/2025 6:56 PM EST [facility] - 01/12/2025 7:34 PM EST Assay [...] MD LAB URINE ORDERABLES Final Resul t [facility] [address] [place] [address], * Buprenorphine screen, urine (01/12/2025 6:50 PM EST) Only the most recent of2 resultswithin the time period is included. Buprenorphine Screen Urine Negative Negative 01/12/2025 7:33 PM EST [facility] Urine Urine specimen obtained by clean catch procedure / Unknown Non-blood Collection / Unknown 01/12/2025 6:50 PM EST 01/12/2025 6:56 PM EST Narrative [facility] - 01/12/2025 7:33 PM EST Assay cutoff 5 ng/mL Semi-quantitative assay for screening purposes only. Unconfirmed screening result should not be used for non-medical purposes. *ALTERNATE METHOD CONFIRMATION DONE UPON REQUEST ONLY* us Christian Kaur MD LAB URINE ORDERABLES Final Resul t Performing Organization Address [facility] de Phone Number [facility] [address] [place] [address], [place] [phone] * Methadone, urine (01/12/2025 6:50 PM EST) Only the most recent of2 resultswithin the time period is included. Methadone Screen, Urine Negative Negative 01/12/2025 7:34 PM EST [facility] Comment: Assay cutoff 300 ng/mL Semi-quantitative [...] ORDERABLES Final Resul t Performing Organization Address [facility] de Phone Number [facility] [address] [place] [address], [place] [phone] * Phencyclidine, urine (01/12/2025 6:50 PM EST) Only the most recent of2 resultswithin the time period is included. PCP Scrn, Ur Negative Negative 01/12/2025 7:34 PM EST [facility] Comment: Assay cutoff 25 ng/mL Semi-quantitative [...] ORDERABLES Final Resul t Performing Organization Address City/[facility]/ZIP Co de Phone Number [facility] [address] [place] [address], [place] [phone] * 12-Lead ECG (01/12/2025 5:33 PM EST) Ventricular Rate ECG 62 BPM GEMUSE Atrial Rate 62 BPM GEMUSE P-R Interval 178 ms GEMUSE QRS Duration 78 ms GEMUSE Q-T Interval 428 ms GEMUSE QTc 434 ms GEMUSE P Wave [place] 52 degrees GEMUSE R [place] -2 degrees GEMUSE T [place] 19 degrees GEMUSE ECG Interpretation Normal sinus rhythm with sinus arrhythmia Normal ECG When compared with ECG of 21-AUG-2024 13:46, No significant change was found Confirmed by LILLIAM LIU ([id number]) on 01/13/2025 10:06:36 AM GEMUSE 01/12/2025 5:33 PM EST 01/13/2025 10:06 AM EST us Christian Kaur MD ECG ORDERABLES Final Result Performing Organization Address [facility] de Phone Number GEMUSE * (ABNORMAL) CBC auto differential (01/12/2025 4:20 PM EST) Only the most recent of2 resultswithin the time period is included. WBC 14.7(H) 4.8 - 10.8 K/[facility] HEMETOLOGY METHOD 01/12/2025 4:51 PM EST [facility] RBC 4.30 3.80 - 4.80 M/[facility] HEMETOLOGY METHOD 01/12/2025 4:51 PM EST [facility] Hemoglobin 13.1 11.5 - 16.0 g/dL LAB HEMETOLOGY METHOD 01/12/2025 4:51 PM [facility] Hematocrit 40.4 35.0 - 47.0 % LAB HEMETOLOGY METHOD 01/12/2025 4:51 PM [facility] MCV 93.1 79.0 - 98.0 FL LAB HEMETOLOGY METHOD 01/12/2025 4:51 PM [facility] MCH 30.2 27.0 - 32.0 pcg LAB HEMETOLOGY METHOD 01/12/2025 4:51 PM [facility] MCHC 32.4 32.0 - 37.0 g/dL LAB HEMETOLOGY METHOD 01/12/2025 4:51 PM [facility] RDW 13.4 11.0 - 15.0 % LAB HEMETOLOGY METHOD 01/12/2025 4:51 PM [facility] Platelets 262 130 - 400 K/mcL LAB HEMETOLOGY METHOD 01/12/2025 4:51 PM [facility] MPV 10.6 7.0 - 11.0 FL LAB HEMETOLOGY METHOD 01/12/2025 4:51 PM [facility] NRBC 0.0 <1.0 % LAB HEMETOLOGY METHOD 01/12/2025 4:51 PM [facility] NRBC Absolute 0.00 <0.10 K/mcL LAB HEMETOLOGY METHOD 01/12/2025 4:51 PM [facility] Neutrophils Relative 88.5 % LAB HEMETOLOGY METHOD 01/12/2025 4:51 PM [facility] Lymphocytes Relative 8.6 % LAB HEMETOLOGY METHOD 01/12/2025 4:51 PM [facility] Monocytes Relative 1.6 % LAB HEMETOLOGY METHOD 01/12/2025 4:51 PM [facility] Eosinophils Relative 0.0 % LAB HEMETOLOGY METHOD 01/12/2025 4:51 PM EST [facility] Basophils Relative 0.1 % LAB HEMETOLOGY METHOD 01/12/2025 4:51 PM [facility] Immature Granulocytes Relative 1.2 % LAB HEMETOLOGY METHOD 01/12/2025 4:51 PM EST [facility] Neutrophils Absolute 12.99(H) 1.50 - 7.00 K/mcL LAB HEMETOLOGY METHOD 01/12/2025 4:51 PM EST [facility] Lymphocytes Absolute 1.27 1.00 - 5.00 K/mcL LAB HEMETOLOGY METHOD 01/12/2025 4:51 PM [facility] Monocytes Absolute 0.24 0.20 - 1.00 K/mcL LAB HEMETOLOGY METHOD 01/12/2025 4:51 PM EST [facility] Eosinophils Absolute 0.00 0.00 - 0.50 K/mcL LAB HEMETOLOGY METHOD 01/12/2025 4:51 PM EST [facility] Basophils Absolute 0.02 0.00 - 0.20 K/mcL LAB HEMETOLOGY METHOD 01/12/2025 4:51 PM [facility] Immature Granulocytes Absolute 0.17(H) 0.00 - 0.03 K/mcL LAB HEMETOLOGY METHOD 01/12/2025 4:51 PM EST [facility] Blood Venous blood specimen / Unknown Venipuncture / Unknown 01/12/2025 4:20 PM EST 01/12/2025 4:44 PM EST us Christian Kaur MD LAB BLOOD ORDERABLES Final Resul t [facility] [address] [place] [address], * Ethanol (01/12/2025 4:20 PM EST) Only the most recent of2 resultswithin the time period is included. Ethanol Level <3 0 - 10 mg/dL 01/12/2025 5:26 PM EST [facility] Blood Venous blood specimen / Unknown Venipuncture / Unknown 01/12/2025 4:20 PM EST 01/12/2025 4:44 PM EST us Christian Kaur MD LAB BLOOD ORDERABLES Final Resul t Performing Organization Address City/[facility] Co de Phone Number [facility] [address] [place] [address], [place] [phone] * (ABNORMAL) Acetaminophen level (01/12/2025 4:20 PM EST) Only the most recent of2 resultswithin the time period is included. Acetaminophen Level 5.8(L) 10.0 - 30.0 mcg/mL 01/12/2025 5:23 PM EST [facility] Blood Venous blood specimen / Unknown Venipuncture / Unknown 01/12/2025 4:20 PM EST 01/12/2025 4:44 PM EST us Christian Kaur MD LAB BLOOD ORDERABLES Final Resul t Performing Organization Address [facility]/ZIP Co de Phone Number [facility] [address] [place] [address], [place] [phone] * Salicylate level (01/12/2025 4:20 PM EST) Only the most recent of2 resultswithin the time period is included. Salicylate Level <3.0 2.0 - 29.0 mg/dL 01/12/2025 5:26 PM EST [facility] Blood Venous blood specimen / Unknown Venipuncture / Unknown 01/12/2025 4:20 PM EST 01/12/2025 4:44 PM EST us Christian Kaur MD LAB BLOOD ORDERABLES Final Resul t [facility] [address] [place] [address], * (ABNORMAL) Comprehensive metabolic panel (01/12/2025 4:20 PM EST) Only the most recent of2 resultswithin the time period is included. Sodium 140 133 - 145 mmol/L 01/12/2025 5:23 PM [facility] Potassium 3.8 3.5 - 5.5 mmol/L 01/12/2025 5:23 PM [facility] Chloride 102 96 - 110 mmol/L 01/12/2025 5:23 PM [facility] CO2 29 21 - 32 mmol/L 01/12/2025 5:23 PM [facility] Anion Gap 9 3 - 11 01/12/2025 5:23 PM [facility] Glucose 111(H) 70 - 100 mg/dL 01/12/2025 5:23 PM [facility] BUN 16 5 - 25 mg/dL 01/12/2025 5:23 PM [facility] Creatinine 0.99 0.50 - 1.10 mg/dL 01/12/2025 5:23 PM [facility] eGFR 67 >=60 mL/min/1. 73m2 01/12/2025 5:23 PM [facility] Comment:Calculation based on the Chronic Kidney Disease Epidemiology Collaboration (CKD-EPI) equation refit without adjustment for race. BUN/Creatinine Ratio 16.2 01/12/2025 5:23 PM [facility] Calcium 8.2(L) 8.5 - 10.5 mg/dL 01/12/2025 5:23 PM [facility] AST (SGOT) 28 10 - 42 unit/L 01/12/2025 5:23 PM EST [facility] ALT (SGPT) 22 10 - 60 unit/L 01/12/2025 5:23 PM EST [facility] Alkaline Phosphatase 120 42 - 121 unit/L 01/12/2025 5:23 PM [facility] Total Protein 6.6 6.0 - 8.0 g/dL 01/12/2025 5:23 PM [facility] Albumin 4.2 3.2 - 5.0 g/dL 01/12/2025 5:23 PM [facility] Total Bilirubin 0.2 0.0 - 1.4 mg/dL 01/12/2025 5:23 PM [facility] Blood Venous blood specimen / Unknown Venipuncture / Unknown 01/12/2025 4:20 PM EST 01/12/2025 4:44 PM EST us Christian Kaur MD LAB BLOOD ORDERABLES Final Resul t [facility] [address] [place] [address], * CT Head wo Contrast (01/10/2025 7:31 [...] De Leon MD on 01/10/2025 20:33:45 us To Chavez MD IMG CT PROCEDURES Final Result * MR Cervical [...] De Leon MD on 01/10/2025 20:41:05 To Chavez MD IMG MRI PROCEDURES Final Result from Last 3 Months Insurance MEDICA[place] - [place] Care Teams Trial Consultant Relationship Specialty Start Date End Date Physician, No Pcp PCP - General 11/16/24
[2025-01-15 20:09] VITALS: BP 121/67; PULSE 64; RESP 16; TEMP 35.7; O2SAT 99
[2025-01-16 00:20] VITALS: BP 133/86
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
[2025-01-16 08:20] VITALS: BP 133/83; PULSE 78; RESP 18; O2SAT 99
[2025-01-16 08:40] LABS: Alanine Aminotransferase 70 U/L (0-31); Albumin Level 4.1 g/dL (3.5-5.0); Alkaline Phosphatase 116 U/L (39-117); Anion Gap 11 (12-20); Aspartate Amino Transferase 43 U/L (5-31); Blood Urea Nitrogen 16 mg/dL (9-16); Calcium 9.2 mg/dL (8.4-10.2); Carbon Dioxide 29 mmol/L (22-29); Chloride 104 mmol/L (96-108); Cholesterol 214 mg/dL (<200); Creatinine Clr Calc Pharmacy 66.0; Estimated Glomerular Filt Rate > 60; HDL Cholesterol 50 mg/dL (>40); Magnesium 2.2 mg/dL (1.6-2.6); Potassium 4.4 mmol/L (3.3-5.1); Sodium 140 mmol/L (135-145); Total Protein 7.3 g/dL (6.5-8.0); Triglycerides 358 mg/dL (<150)
[2025-01-16 08:45] VITALS: BP 133/83
[2025-01-16 08:46] VITALS: BP 133/83
[2025-01-16] MEDS: Venlafaxine HCl ER 75 MG CAP.ER.24H PO (08:46)
[2025-01-16 08:57] LABS: Free T4 (Free Thyroxine) 0.96 ng/dL (0.71-1.85); Thyroid Stimulating Hormone 1.84 uIU/mL (0.32-4.0)
[2025-01-16 09:10] LABS: Folate 6.2 ng/mL (> or = 4.0); Vitamin B12 291 pg/mL (200-900)
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
[2025-01-16 20:30] VITALS: BP 143/88; PULSE 96; RESP 18; TEMP 35.8; O2SAT 98
--- NOTE | 2025-01-17 | ECG_ITS ---
Test Reason : CHECK QT Blood Pressure : */* mmHG Vent. Rate : 76 BPM Atrial Rate : 76 BPM P-R Int : 180 ms QRS Dur : 62 ms QT Int : 378 ms P-R-T Axes : 54 8 24 degrees QTcB Int : 425 ms Normal sinus rhythm Septal infarct , age undetermined Abnormal ECG No previous ECGs available Referred By: Danette Richardson Electronically Signed By: DIMITRI GRUBER
[2025-01-17 08:40] VITALS: BP 129/78; PULSE 83; RESP 16
[2025-01-17] MEDS: Venlafaxine HCl ER 75 MG CAP.ER.24H PO (08:51)
[2025-01-17 20:45] VITALS: BP 147/93; PULSE 81; RESP 16; TEMP 36.1; O2SAT 98
--- NOTE | 2025-01-17 20:56 | P.PNPSI_ITS ---
Subjective Subjective Date of Service: 01/17/25 Reason For Visit: major depressive disorder, ptsd Subjective Notes: Conditional Voluntary Interim History: Chart reviewed. Case discussed w/ team Pt reports that the nerve pain significantly improved w/ the gabapentin 100 mg tid. She reports that her mood is depressed due to stressors that she doesn't want to discuss. She denies SI and denies AHVH. Denies med SE. She wants to continue current med regimen for now. She was up in the middle of the night for 2 hrs and played [employer] and went back to sleep. Diagnostics Vital Signs (24Hr): Vital Signs - 24 hr 01/17/25 08:40 Pulse Rate 83 Respiratory Rate 16 Blood Pressure 129/78 BMI result Body Mass Index 34.2 Labs 01/16/25 07:49 Labs: Laboratory Results - last 48 hr 01/16/25 07:49 Sodium 140 Potassium 4.4 Chloride 104 Carbon Dioxide 29 Anion Gap 11 L BUN 16 Creatinine 0.96 Estim Creat Clear Calc 66.0 Estimated GFR > 60 Random Glucose 83 Estimat Average Glucose 120 Hemoglobin A1c % 5.8 Calcium 9.2 D Magnesium 2.2 Total Bilirubin 0.2 AST 43 H ALT 70 H Alkaline Phosphatase 116 Total Protein 7.3 Albumin 4.1 Triglycerides 358 H Cholesterol 214 H LDL Cholesterol, Calc 93 HDL Cholesterol 50 Vitamin B12 291 Folate 6.2 TSH 1.84 Free T4 0.96 Medications Medications Current Medications Acetaminophen (Acetaminophen 325 Mg Tablet) 650 mg PO Q6H PRN PRN Reason: Headache/Pain, Scale 1-10 Last Admin: 01/17/25 11:56 Dose: 650 mg Al Hydroxide/Mg Hydroxide (Magnesium Hydrox/Alum Hydrox 30 Ml Oral.Susp) 30 ml PO Q6H PRN PRN Reason: Heartburn/Nausea Clonidine HCl (Clonidine Hcl 0.2 Mg Tablet) 0.2 mg PO BID [facility]; Protocol Last Admin: 01/17/25 08:52 Dose: 0.2 mg Gabapentin (Gabapentin 100 Mg Capsule) 100 mg PO TID [facility] Last Admin: 01/17/25 14:06 Dose: 100 mg Hydrochlorothiazide (Hydrochlorothiazide 12.5 Mg Tablet) 12.5 mg PO DAILY [facility]; Protocol Last Admin: 01/17/25 08:53 Dose: 12.5 mg Hydroxyzine HCl (Hydroxyzine Hcl 25 Mg Tablet) 25 mg PO Q6H PRN PRN Reason: mild anxiety Magnesium Hydroxide (Milk Of Magnesia 30 Ml Oral.Susp) 30 ml PO DAILY PRN PRN Reason: Constipation Methocarbamol (Methocarbamol 500 Mg Tablet) 500 mg PO BID [facility] Stop: 01/25/25 09:01 Last Admin: 01/17/25 08:52 Dose: 500 mg Methylprednisolone (Methylprednisolone 4 Mg Tablet) 32 mg PO DAILY [facility] Last Admin: 01/17/25 08:54 Dose: 32 mg Naproxen (Naproxen 500 Mg Tablet) 500 mg PO BID PRN PRN Reason: arm pain Last Admin: 01/17/25 14:06 Dose: 500 mg Nicotine (Nicotine 21 Mg Patch.Td24) 21 mg TRANSDERMA DAILY PRN PRN Reason: nicotine craving Nicotine Polacrilex (Nicotine Polacrilex 2 Mg Gum) 2 mg BUCCAL Q2H PRN PRN Reason: Nicotine Cravings Omeprazole (Omeprazole 20 Mg Capsule.Dr) 20 mg PO DAILY@0630 PRN PRN Reason: Heartburn Trazodone HCl (Trazodone Hcl 50 Mg Tablet) 50 mg PO BEDTIME MRX1 PRN PRN Reason: Insomnia Venlafaxine HCl (Venlafaxine Hcl Er 75 Mg Cap.Er.24h) 75 mg PO DAILY [facility] Last Admin: 01/17/25 08:51 Dose: 75 mg Vitamin D (Cholecalciferol (Vitamin D3) 25 Mcg Tablet) 25 mcg PO DAILY [facility] Last Admin: 01/17/25 08:51 Dose: 25 mcg Allergies Allergies Allergy/AdvReac Type Severity Reaction Status Date / Time Penicillins Allergy Severe RASH Verified 07/15/24 14:54 fluphenazine Allergy Unknown Verified 07/12/24 16:28 haloperidol (From Haldol) Allergy Unknown Verified 07/12/24 16:31 lithium Allergy Unknown Verified 07/12/24 16:31 paliperidone Allergy Unknown Verified 07/12/24 16:31 lithium citrate Allergy Intermediate Rash Uncoded 07/15/24 14:55 Assessment & Plan Assessment & Plan (1) Schizoaffective disorder, depressive type: Status: Acute Code(s): F25.1 - Schizoaffective disorder, depressive type (2) PTSD (post-traumatic stress disorder): Status: Acute Code(s): F43.10 - Post-traumatic stress disorder, unspecified (3) Cocaine use disorder: Status: Acute Code(s): F14.10 - Cocaine abuse, uncomplicated (4) History of crack cocaine use: Status: Acute Code(s): Z87.898 - Personal history of other specified conditions Plan Ms Ahumada is a 54 y/o single black F with h/o Schizoaffective d/o, stimulant use d/o (crack cocaine), pituitary tumor, s/p hypophysectomy, and HTN who was brought to the [facility] ED after calling Crisis and endorsing SI. She was transferred to [facility] for safety and stabilization. Plan: Admitted for [facility] for safety and stabilization 15 min safety checks Milieu therapy VS per unit standard. Will check EKG Consult hospitalist for admission H&P Start gabapentin 100 mg tid and titrate as needed/tolerated for neuropathic pain. Pt otherwise prefers to continue her current med regimen for now. Not currently taking an antipsychotic. Time Spent With Patient Time: Total time managing care of this patient today ____ minutes.
[2025-01-18 07:00] VITALS: BMI 34.5
[2025-01-18 08:00] VITALS: BP 139/81; PULSE 78; RESP 16; TEMP 36.1; O2SAT 98
[2025-01-18 08:55] VITALS: BP 139/81
[2025-01-18] MEDS: Venlafaxine HCl ER 75 MG CAP.ER.24H PO (08:55)
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
--- NOTE | 2025-01-18 18:36 | PC.NURSE ---
[facility] RPh Dory confirmed patient picked up Tobramycin - Dexamethasone opthalmic 01/02/25 1 drop to both eyes diane Michel.
[2025-01-18 22:00] VITALS: BP 139/81; PULSE 78; RESP 16; TEMP 36.1; O2SAT 98
[2025-01-18 22:20] VITALS: BP 139/81
[2025-01-19 07:57] VITALS: BP 152/91; PULSE 84; RESP 20; TEMP 36.8; O2SAT 99
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
[2025-01-19] MEDS: Venlafaxine HCl ER 75 MG CAP.ER.24H PO (08:43)
== END 2025-01-19 11:21 | disposition home or self-care (01) | DRG 750 ==
PROVIDERS: Nurse Practitioner Psychiatric/Mental Health; Admitting Provider Psychiatry & Neurology Psychiatry; Visit Provider Psychiatry & Neurology Psychiatry
DX: F25.1 Schizoaffective disorder, depressive type (principal); R45.851 Suicidal ideations; R45.850 Homicidal ideations; F43.10 Post-traumatic stress disorder, unspecified; F14.10 Cocaine abuse, uncomplicated; K21.9 Gastro-esophageal reflux disease without esophagitis; I10 Essential (primary) hypertension; R20.0 Anesthesia of skin; Z79.899 Other long term (current) drug therapy
CPT/HCPCS: 36415; 80053; 80061; 82607; 82746; 83036; 83735; 84439; 84443; 93005

== ENCOUNTER → 2025-01-15 17:54 | Outpatient (BNV) | payer MEDICAID, SELFPAY | PROVIDERS: Admitting Provider Psychiatry & Neurology Psychiatry; Visit Provider Nurse Practitioner Family | DX: I10 Essential (primary) hypertension (principal) | CPT/HCPCS: 99221 ==

== ENCOUNTER → 2025-01-15 17:54 | Outpatient (BNV) | payer OTHER, SELFPAY | PROVIDERS: Admitting Provider Psychiatry & Neurology Psychiatry; Visit Provider Psychiatry & Neurology Psychiatry | DX: F25.1 Schizoaffective disorder, depressive type (principal); F14.10 Cocaine abuse, uncomplicated; F43.11 Post-traumatic stress disorder, acute | CPT/HCPCS: 99231; 99232 ==